=== PATIENT | male | born 1990 | race African-American/Black ===

== ENCOUNTER 2016-08-17 17:02 | Emergency (ER) | payer OTHER ==
[~2016-08-17] VITALS: Ht 185.4 cm; Wt 76.4 kg
[~2016-08-17 17:02] MED LIST: ALBUAER2 INH
[2016-08-17 17:14] VITALS: TEMP 36.9; Ht 185.4 cm; Wt 76.4 kg
[2016-08-17] MEDS ORDERED: VNTHFA/IN INH (18:18)
[2016-08-17 19:01] LABS: BASO % 0.6 %; BASO ABS # 0.05 K/uL (0-0.2); COMPLETE YES; EOS % 9.4 %; HEMATOCRIT 38.7 % (42-52); IG% 0.1 %; LYMPH % 18.1 %; MEAN CELL VOLUME 86.8 fL (80-100); MEAN CORPUSCULAR HEMOGLOBIN 31.2 pg (25-34); MEAN CORPUSCULAR HGB CONC 35.9 g/dl (32-36); MONO % 9.8 %; PLATELET COUNT 205 K/uL (130-400); RED BLOOD COUNT 4.46 M/uL (4.7-6.1); WHITE BLOOD COUNT 7.74 K/uL (4.8-10.8)
--- NOTE | 2016-08-17 19:18 | DIAGNOSTIC IMAGING REPORT ---
ABDOMEN AND PELVIS CT WITHOUT CONTRAST CT DOSE: 763.27 mGy.cm HISTORY: Flank pain lower abd pain TECHNIQUE: Multiaxial CT images of the abdomen and pelvis were performed without the use of intravenous and oral contrast according to the standard department stone protocol. COMPARISON STUDY: 08/01/2013 FINDINGS: The lung bases are clear. The unenhanced liver, gallbladder, spleen, pancreas, and adrenal glands are unremarkable. No renal calcifications or hydronephrosis. Several fluid-filled loops of small bowel as well as several mesenteric nodes. Appearance consistent with that of a nonspecific enteritis. No evidence for abscess collection or obstructive change. Mild mesenteric adenitis. IMPRESSION: 1. No evidence for obstructive urinary tract change. 2. Findings consistent with a mild enteritis combine with mild mesenteric adenitis.. 3. Study is otherwise negative Electronically signed by: Rigoberto Rey M.D. 08/17/2016 7:17 PM
[2016-08-17 19:25] LABS: URINE APPEARANCE CLEAR (CLEAR); URINE BILIRUBIN NEG (NEG); URINE COLOR YELLOW; URINE NITRITE NEG (NEG); URINE PH 6.5 (4.5-7.5); URINE SPECIFIC GRAVITY 1.015 (1.000-1.030); UROBILINOGEN NEG (NEG)
[2016-08-17 19:25] LABS: BUN/CREATININE RATIO 14.4 (10-20); CALCIUM 8.5 mg/dl (8.5-10.1); CREATININE 1.1 mg/dl (0.60-1.40); POTASSIUM 3.8 mmol/L (3.5-5.1)
[2016-08-17 19:29] LABS: MANUAL MICROSCOPIC REQUIRED? NO; REVIEW REQ? NO
[2016-08-17 19:40] VITALS: BP 118/74; PULSE 64; O2SAT 99
--- NOTE | 2016-08-17 23:13 | EMERGENCY ROOM VISIT NOTE ---
History Report prepared by Soledad: Anu Gamboa Under the Supervision of: Dr. Timoteo Astudillo M.D. First contact with patient: 17:56 Chief Complaint: ABDOMINAL PAIN Stated Complaint: PAINS IN LOWER BODY Nursing Triage Summary: patient c/o pain (pressure, heaviness) in lower abdomen, pelvic and groin area and scrotum. S/S x June. Seen here previously, did not follow up. Not getting better, some days no pain, other days it "flares up, the pressure the pain and it hurts to bend down and get back up." Denies urinary and bowel symptoms, denies n/v/d History of Present Illness The patient is a 26 year old male who presents to the Emergency Room with complaints of intermittent lower abdominal pain beginning 2 months ago. The patient states that his pain feels like pressure in his pelvic area, pain in his groin, and heaviness in his scrotum. He notes that he was seen here 2 months ago when his pain stared but did not follow up with his PCP. He reports that his pain has not gotten better since his last visit with intermittent flare ups. The patient reports that he does not know what triggers the flare ups and they last for various increments of time. The patient notes associated back pain. He denies any testicular swelling, fever, vomiting, diarrhea, black or bloody stools, and family history of Crohn's disease, ulcerative colitis or irritable bowel. Source of History: patient Onset: 2 months ago Position: abdomen Quality: pressure, other (heaviness) Timing: intermittent Associated Symptoms: + back pain, No diarrhea, No fevers, No hematochezia, No melena, No vomiting Note: He denies any testicular swelling, black or bloody stools, and family history of Crohn's disease, ulcerative colitis or irritable bowel. Review of Systems See HPI for pertinent positives & negatives. A total of 10 systems reviewed and were otherwise negative. Past Medical & Surgical Medical Problems: (1) Achilles rupture, right (2) Asthma (3) Chest pain Family History Diabetes mellitus Heart disease Hypertension Social History Smoking Status: Never Smoker Alcohol Use: occasionally Marital Status: in relationship Housing Status: lives with roommate Occupation Status: employed Current/Historical Medications Scheduled PRN Albuterol Hfa (Ventolin Hfa), 2 PUFFS INH Q4H PRN for Wheezing Allergies Coded Allergies: No Known Allergies (Unverified , 08/17/16) Physical Exam Vital Signs Date Time Temp Pulse Resp B/P Pulse Ox O2 Delivery O2 Flow Rate FiO2 08/17/16 19:40 64 16 118/74 99 08/17/16 17:14 36.9 79 17 117/69 97 Room Air Physical Exam Constitutional: Vital signs reviewed. Eyes: Pupils are equal round reactive to light. Conjunctiva are noninjected. ENT: Pharynx is clear without erythema or exudate. Mucous membranes are moist. Neck supple without meningeal signs. Respiratory: Clear to auscultation bilaterally. Breath sounds are equal bilaterally. Cardiovascular: Regular rate and rhythm. No rubs or gallops. GI: Soft, nondistended and nontender. Bowel sounds are present. Musculoskeletal: No peripheral edema. No CVA tenderness. Integumentary: No cyanosis. Neurological: The patient is awake and alert. No focal deficits. Psychiatric: Normal affect. Medical Decision & Procedures ER Provider Diagnostic Interpretation: CT results as stated below per my review and radiologist interpretation. ABDOMEN AND PELVIS CT WITHOUT CONTRAST COMPARISON STUDY: 08/01/2013 FINDINGS: The lung bases are clear. The unenhanced liver, gallbladder, spleen, pancreas, and adrenal glands are unremarkable. No renal calcifications or hydronephrosis. Several fluid-filled loops of small bowel as well as several mesenteric nodes. Appearance consistent with that of a nonspecific enteritis. No evidence for abscess collection or obstructive change. Mild mesenteric adenitis. IMPRESSION: 1. No evidence for obstructive urinary tract change. 2. Findings consistent with a mild enteritis combine with mild mesenteric adenitis.. 3. Study is otherwise negative Electronically signed by: Rigoberto Rey M.D. 08/17/2016 7:17 PM Laboratory Results 08/17/16 18:17 Red Blood Count 4.46, Mean Corpuscular Volume 86.8, Mean Corpuscular Hemoglobin 31.2, Mean Corpuscular Hemoglobin Concent 35.9, Mean Platelet Volume 11.0, Neutrophils (%) (Auto) 62.0, Lymphocytes (%) (Auto) 18.1, Monocytes (%) (Auto) 9.8, Eosinophils (%) (Auto) 9.4, Basophils (%) (Auto) 0.6, Neutrophils # (Auto) 4.79, Lymphocytes # (Auto) 1.40, Monocytes # (Auto) 0.76, Eosinophils # (Auto) 0.73, Basophils # (Auto) 0.05 08/17/16 18:17 Test 08/17/16 18:17 08/17/16 18:20 White Blood Count 7.74 K/uL (4.8-10.8) Red Blood Count 4.46 M/uL (4.7-6.1) Hemoglobin 13.9 g/dL (14.0-18.0) Hematocrit 38.7 % (42-52) Mean Corpuscular Volume 86.8 fL (80-100) Mean Corpuscular Hemoglobin 31.2 pg (25-34) Mean Corpuscular Hemoglobin Concent 35.9 g/dl (32-36) Platelet Count 205 K/uL (130-400) Mean Platelet Volume 11.0 fL (7.4-10.4) Neutrophils (%) (Auto) 62.0 % Lymphocytes (%) (Auto) 18.1 % Monocytes (%) (Auto) 9.8 % Eosinophils (%) (Auto) 9.4 % Basophils (%) (Auto) 0.6 % Neutrophils # (Auto) 4.79 K/uL (1.4-6.5) Lymphocytes # (Auto) 1.40 K/uL (1.2-3.4) Monocytes # (Auto) 0.76 K/uL (0.11-0.59) Eosinophils # (Auto) 0.73 K/uL (0-0.5) Basophils # (Auto) 0.05 K/uL (0-0.2) RDW Standard Deviation 38.9 fL (36.4-46.3) RDW Coefficient of Variation 12.2 % (11.5-14.5) Immature Granulocyte % (Auto) 0.1 % Immature Granulocyte # (Auto) 0.01 K/uL (0.00-0.02) Anion Gap 10.0 mmol/L (3-11) Est Creatinine Clear Calc Drug Dose 110.9 ml/min Estimated GFR () 107.6 Estimated GFR (Non- 92.8 BUN/Creatinine Ratio 14.4 (10-20) Calcium Level 8.5 mg/dl (8.5-10.1) Total Bilirubin 1.1 mg/dl (0.2-1) Direct Bilirubin 0.2 mg/dl (0-0.2) Aspartate Amino Transf (AST/SGOT) 32 U/L (15-37) Alanine Aminotransferase (ALT/SGPT) 30 U/L (12-78) Alkaline Phosphatase 62 U/L (45-117) Total Protein 7.0 gm/dl (6.4-8.2) Albumin 3.8 gm/dl (3.4-5.0) Lipase 173 U/L (73-393) Urine Color YELLOW Urine Appearance CLEAR (CLEAR) Urine pH 6.5 (4.5-7.5) Urine Specific [place] 1.015 (1.000-1.030) Urine Protein NEG (NEG) Urine Glucose (UA) NEG (NEG) Urine Ketones NEG (NEG) Urine Occult Blood NEG (NEG) Urine Nitrite NEG (NEG) Urine Bilirubin NEG (NEG) Urine Urobilinogen NEG (NEG) Urine Leukocyte Esterase NEG (NEG) Laboratory results as reviewed by me. ED Course 1814: The patient was evaluated in room A12B. A complete history and physical exam was performed. 1933: I reevaluated the patient and discussed his test results. 1941: Upon reevaluation, the patient appeared to have improvement of his symptoms. I discussed mike's findings with the patient. He verbalized agreement of the treatment plan. The patient was discharged home. Medical Decision This is a 26-year-old male who presents with lower abdominal pain. Differential diagnosis includes irritable bowel syndrome, inflammatory bowel disease, UTI, pancreatitis, enteritis. I did perform a limited focused review of portions of the patient's old chart on the electronic medical record. The patient was seen here in June of last year for lower abdominal pain and scrotal heaviness. He had an evaluation here including testicular US that showed hydroceles and unremarkable blood work. Chlamydia and gonorrhea tests were negative. I did evaluate the patient as noted above. IV access was established. I did order and personally review the patient's urinalysis as described above. I did order and review the patient's blood work as noted in the electronic medical record. His white blood cell count is not elevated. I did order a CT of the abdomen and pelvis. I did review the images myself as well as the radiology report as described above.This shows evidence of enteritis and mesenteric lymphadenopathy. I did discuss the test results with the patient. He is currently not having any pain. While mesenteric adenitis was a consideration, the patient has had pain since June which seems rather prolonged for mesenteric adenitis. Therefore I recommended to the patient that he follow up with gastroenterology for further evaluation of his symptoms as well as [facility]. He was discharged in good condition. Impression Primary Impression: Lower abdominal pain Additional Impression: Mesenteric lymphadenopathy Scribe Attestation The scribe's documentation has been prepared under my direct and personally reviewed by me in its entirety. I confirm that the note above accurately reflects all work, treatment, procedures, and medical decision making performed by me. Departure Information Dispostion Home / Self-Care Referrals No Doctor, Assigned (PCP) Forms HOME CARE DOCUMENTATION FORM, IMPORTANT VISIT INFORMATION, My [facility] Patient Instructions A Signature Page, ED Adenitis Mesenteric Additional Instructions You have been examined and treated today on an emergency basis only. This is not a substitute for, or an effort to provide, complete comprehensive medical care. It is impossible to recognize and treat all injuries or illnesses in a single emergency department visit. It is therefore important that you follow up closely with [facility] services and Dr. Bull of gastroenterology. Call as soon as possible for an appointment. Return for worsening symptoms or if you develop fever, vomiting, or any other concerning symptoms.
== END 2016-08-17 20:06 | disposition home or self-care (01) ==
LOC: C.EDB 17:03 → C.EDA 20:06
DX: R10.30 Lower abdominal pain, unspecified (principal); I88.0 Nonspecific mesenteric lymphadenitis; J45.909 Unspecified asthma, uncomplicated; Z83.3 Family history of diabetes mellitus; Z82.49 Family history of ischemic heart disease and other diseases of the circulatory system

== ENCOUNTER 2016-09-23 19:13 | Emergency (ER) | payer OTHER ==
[~2016-09-23] VITALS: Ht 185.4 cm; Wt 75.7 kg
[~2016-09-23 19:13] MED LIST changes: -ALBUAER2 INH; +VNTHFA/IN INH
[2016-09-23 19:16] VITALS: TEMP 36.9; Ht 185.4 cm; Wt 75.7 kg
[2016-09-23] MEDS ORDERED: ONDANSETRON INJ 2 MG/ML 2 ML VIAL IV STA (19:37)
[2016-09-23] MEDS ORDERED: SODIUM CHLORIDE 0.9% 1000ML 1,000 ML IV STA (19:37)
[2016-09-23 19:57] LABS: BASO % 0.7 %; BASO ABS # 0.05 K/uL (0-0.2); COMPLETE YES; EOS % 6.5 %; HEMATOCRIT 43.6 % (42-52); IG% 0.1 %; LYMPH % 28.1 %; LYMPH ABS # 2.02 K/uL (1.2-3.4); MEAN CELL VOLUME 87.9 fL (80-100); MEAN CORPUSCULAR HEMOGLOBIN 31.5 pg (25-34); MEAN CORPUSCULAR HGB CONC 35.8 g/dl (32-36); MEAN PLATELET VOLUME 11.3 fL (7.4-10.4); MONO % 7.2 %; NEUT % 57.4 %; PLATELET COUNT 222 K/uL (130-400); RED BLOOD COUNT 4.96 M/uL (4.7-6.1); WHITE BLOOD COUNT 7.19 K/uL (4.8-10.8)
[2016-09-23 20:20] LABS: CALCIUM 9.1 mg/dl (8.5-10.1); CREATININE 1.1 mg/dl (0.60-1.40); POTASSIUM 3.9 mmol/L (3.5-5.1)
--- NOTE | 2016-09-23 20:28 | DIAGNOSTIC IMAGING REPORT ---
PA CHEST RADIOGRAPH AND UPRIGHT AND SUPINE AP RADIOGRAPHS OF THE ABDOMEN CLINICAL HISTORY: Vomiting. Evaluate for obstruction. COMPARISON STUDY: Chest radiograph December 22, [address] of the abdomen and pelvis August 17, 2016. FINDINGS: Lung volumes are normal. Lungs are clear. There is no pneumothorax or pleural effusion. Cardiac size is normal. Mediastinal contours are normal. There is no free air. The bowel gas pattern is normal. IMPRESSION: 1. No free air or evidence of bowel obstruction. 2. No acute cardiopulmonary findings. Electronically signed by: Joe Mulligan M.D. 09/23/2016 8:27 PM Dictated Date/Time: 09/23/2016 8:26 PM
[2016-09-23 20:56] LABS: URINE APPEARANCE CLEAR (CLEAR); URINE BILIRUBIN NEG (NEG); URINE COLOR YELLOW; URINE NITRITE NEG (NEG); URINE SPECIFIC GRAVITY 1.021 (1.000-1.030); UROBILINOGEN NEG (NEG)
[2016-09-23 20:57] LABS: MANUAL MICROSCOPIC REQUIRED? NO; REVIEW REQ? NO
[2016-09-23] MEDS ORDERED: ONDANSETRON HOME PACK 4MG OD TAB PO ONE (21:00)
[2016-09-23] MEDS ORDERED: ONDA4TAB10 SL (21:02)
[2016-09-23 21:35] VITALS: BP 120/70; PULSE 76; O2SAT 100
--- NOTE | 2016-09-23 23:04 | EMERGENCY ROOM VISIT NOTE ---
History Report prepared by Scribe: Amelia Koenig Under the Supervision of: Dr. Timoteo Astudillo M.D. First contact with patient: 19:29 Chief Complaint: VOMITING Stated Complaint: THROWING UP History of Present Illness The patient is a 26 year old male who presents to the Emergency Room with complaints of persistent nausea and vomiting for the past 2 days. He reports yesterday he developed upper abdominal pain with constant vomiting every "20 minutes". Today, the vomiting improved, and he has been vomiting every 3 hours. He denies any recent fevers. He reports he has been constipated and has not had a bowel movement in 2 days. He reports that his abdominal pain is now resolved. Source of History: patient Onset: 2 days [employer] Position: abdomen Timing: other (persistent) Associated Symptoms: + abdominal pain, No fevers Review of Systems See HPI for pertinent positives & negatives. A total of 10 systems reviewed and were otherwise negative. Past Medical & Surgical Medical Problems: (1) Achilles rupture, right (2) Asthma (3) Chest pain Family History Diabetes mellitus Heart disease Hypertension Social History Smoking Status: Never Smoker Alcohol Use: occasionally Marital Status: in relationship Housing Status: lives with roommate Occupation Status: employed Current/Historical Medications Scheduled Ondasetron Odt (Zofran Odt), 4 MG SL Q6H Scheduled PRN Albuterol Hfa (Ventolin Hfa), 2 PUFFS INH Q4H PRN for Wheezing Allergies Coded Allergies: No Known Allergies (Unverified , 09/23/16) Physical Exam Vital Signs Date Time Temp Pulse Resp B/P Pulse Ox O2 Delivery O2 Flow Rate FiO2 09/23/16 21:35 76 18 120/70 100 09/23/16 20:47 78 16 125/78 100 Room Air 09/23/16 20:12 56 09/23/16 19:16 36.9 62 18 126/71 99 Room Air Physical Exam Constitutional: Vital signs reviewed. Eyes: Pupils are equal round reactive to light. Conjunctiva are noninjected. ENT: Pharynx is clear without erythema or exudate. Mucous membranes are slightly dry. Neck supple without meningeal signs. Respiratory: Clear to auscultation bilaterally. Breath sounds are equal bilaterally. Cardiovascular: Regular rate and rhythm. No rubs or gallops. GI: Soft, nondistended and nontender. Bowel sounds are present. Musculoskeletal: No peripheral edema. No CVA tenderness. Integumentary: No cyanosis. Neurological: The patient is awake and alert. No focal deficits. Psychiatric: Normal affect. Medical Decision & Procedures ER Provider Diagnostic Interpretation: This X-Ray was reviewed and interpreted by myself and the radiologist. PA CHEST RADIOGRAPH AND UPRIGHT AND SUPINE AP RADIOGRAPHS OF THE ABDOMEN CLINICAL HISTORY: Vomiting. Evaluate for obstruction. COMPARISON STUDY: Chest radiograph December 22, [address] of the abdomen and pelvis August 17, 2016. FINDINGS: Lung volumes are normal. Lungs are clear. There is no pneumothorax or pleural effusion. Cardiac size is normal. Mediastinal contours are normal. There is no free air. The bowel gas pattern is normal. IMPRESSION: 1. No free air or evidence of bowel obstruction. 2. No acute cardiopulmonary findings. Electronically signed by: Joe Mulligan M.D. 09/23/2016 8:27 PM Laboratory Results 09/23/16 19:45 Red Blood Count 4.96, Mean Corpuscular Volume 87.9, Mean Corpuscular Hemoglobin 31.5, Mean Corpuscular Hemoglobin Concent 35.8, Mean Platelet Volume 11.3, Neutrophils (%) (Auto) 57.4, Lymphocytes (%) (Auto) 28.1, Monocytes (%) (Auto) 7.2, Eosinophils (%) (Auto) 6.5, Basophils (%) (Auto) 0.7, Neutrophils # (Auto) 4.12, Lymphocytes # (Auto) 2.02, Monocytes # (Auto) 0.52, Eosinophils # (Auto) 0.47, Basophils # (Auto) 0.05 09/23/16 19:45 Test 09/23/16 19:45 09/23/16 20:00 White Blood Count 7.19 K/uL (4.8-10.8) Red Blood Count 4.96 M/uL (4.7-6.1) Hemoglobin 15.6 g/dL (14.0-18.0) Hematocrit 43.6 % (42-52) Mean Corpuscular Volume 87.9 fL (80-100) Mean Corpuscular Hemoglobin 31.5 pg (25-34) Mean Corpuscular Hemoglobin Concent 35.8 g/dl (32-36) Platelet Count 222 K/uL (130-400) Mean Platelet Volume 11.3 fL (7.4-10.4) Neutrophils (%) (Auto) 57.4 % Lymphocytes (%) (Auto) 28.1 % Monocytes (%) (Auto) 7.2 % Eosinophils (%) (Auto) 6.5 % Basophils (%) (Auto) 0.7 % Neutrophils # (Auto) 4.12 K/uL (1.4-6.5) Lymphocytes # (Auto) 2.02 K/uL (1.2-3.4) Monocytes # (Auto) 0.52 K/uL (0.11-0.59) Eosinophils # (Auto) 0.47 K/uL (0-0.5) Basophils # (Auto) 0.05 K/uL (0-0.2) RDW Standard Deviation 40.4 fL (36.4-46.3) RDW Coefficient of Variation 12.6 % (11.5-14.5) Immature Granulocyte % (Auto) 0.1 % Immature Granulocyte # (Auto) 0.01 K/uL (0.00-0.02) Anion Gap 7.0 mmol/L (3-11) Est Creatinine Clear Calc Drug Dose 109.9 ml/min Estimated GFR () 107.6 Estimated GFR (Non- 92.8 BUN/Creatinine Ratio 13.0 (10-20) Calcium Level 9.1 mg/dl (8.5-10.1) Total Bilirubin 2.0 mg/dl (0.2-1) Direct Bilirubin 0.4 mg/dl (0-0.2) Aspartate Amino Transf (AST/SGOT) 20 U/L (15-37) Alanine Aminotransferase (ALT/SGPT) 30 U/L (12-78) Alkaline Phosphatase 67 U/L (45-117) Total Protein 7.8 gm/dl (6.4-8.2) Albumin 4.2 gm/dl (3.4-5.0) Lipase 148 U/L (73-393) Urine Color YELLOW Urine Appearance CLEAR (CLEAR) Urine pH 6.0 (4.5-7.5) Urine Specific [place] 1.021 (1.000-1.030) Urine Protein NEG (NEG) Urine Glucose (UA) NEG (NEG) Urine Ketones NEG (NEG) Urine Occult Blood NEG (NEG) Urine Nitrite NEG (NEG) Urine Bilirubin NEG (NEG) Urine Urobilinogen NEG (NEG) Urine Leukocyte Esterase NEG (NEG) Laboratory results as reviewed by me. Medications Administered Medications (Trade) Dose Ordered Sig/Michaela Route Start Time Stop Time Status Last Admin Dose Admin Ondansetron HCl 4 mg 4 mg NOW STAT IV 09/23/16 19:37 09/23/16 19:39 DC 09/23/16 20:06 4 MG Sodium Chloride (Nss 1000ml) 1,000 ml @ 999 mls/hr Q1H1M STAT IV 09/23/16 19:37 09/23/16 20:37 DC 09/23/16 19:54 999 MLS/HR Ondansetron HCl (ZOFRAN ODT 4MG Home Pack) 1 [facility] UD ONCE PO 09/23/16 21:00 09/23/16 21:01 DC 09/23/16 21:00 1 [facility] ED Course 1930: The patient was evaluated in room A4. A complete history and physical exam was performed. 1936: NSS 1000 ml @ 999 mls/hr IV, Zofran 4 mg IV. 2044: I reevaluated the patient. He is drinking Gatorade and feeling well. I discussed his test results including his chronically elevated bilirubin. I also discussed his discharge instructions and he verbalized complete understanding and agreement. 2100: Zofran 4 mg 1 home pack PO. Medical Decision This is a 26-year-old male presents with vomiting and abdominal pain. Differential diagnosis includes gastritis, peptic ulcer disease, GERD, bowel obstruction, pancreatitis, irritable bowel syndrome. I did perform a limited focused review of portions of the patient's old chart on the electronic medical record. The patient was seen here in the ED by me on August 17, 2016 for pain in his lower abdomen. He had a CT scan which showed mild enteritis and mild mesenteric adenitis. I did evaluate the patient as noted above. The patient is presenting with upper abdominal pain that has since resolved. He does continue to have vomiting since yesterday. His examination is unremarkable other than some dry mucous membranes. He has no abdominal tenderness. IV access was established. He was treated with Zofran IV and normal saline IV. I did order and personally review the patient's abdominal and chest x-ray as described above. There is no evidence of obstruction or free air. He does state he has been constipated and I did recommend enemas at home. I did order and review the patient's blood work as noted in the electronic medical record. Blood work is unremarkable other than a mild elevation of his bilirubin which is chronic. I did reassess the patient. He is drinking Gatorade without difficulty and feels much better. His urinalysis is unremarkable. He was informed of his test results and discharged with a prescription for Zofran. He was advised to find a primary care physician for follow up. Impression Primary Impression: Vomiting Additional Impression: Upper abdominal pain Scribe Attestation The scribe's documentation has been prepared under my direct and personally reviewed by me in its entirety. I confirm that the note above accurately reflects all work, treatment, procedures, and medical decision making performed by me. Departure Information Dispostion Home / Self-Care Prescriptions Ondasetron Odt (ZOFRAN ODT) 4 Mg Tab 4 MG SL Q6H for Nausea, #10 TAB Prov: Timoteo Astudillo M.D. 09/23/16 Referrals No Doctor, Assigned (PCP) Patient Instructions ED Abd Pain Cause Unkn Male Ch, My [facility], Vomiting - [facility] Additional Instructions You have been examined and treated today on an emergency basis only. This is not a substitute for, or an effort to provide, complete comprehensive medical care. It is impossible to recognize and treat all injuries or illnesses in a single emergency department visit. It is therefore important that you follow up closely with a regular physician. Call as soon as possible for an appointment. Return for worsening symptoms or if you develop fever, black or tarry stools, pain in the right lower abdomen or any other concerning symptoms. Problem Qualifiers Primary Impression: Vomiting Vomiting type: unspecified Vomiting Intractability: non-intractable Nausea presence: with nausea Qualified Codes: R11.2 - Nausea with vomiting, unspecified
== END 2016-09-23 21:36 | disposition home or self-care (01) ==
LOC: C.EDB 19:14 → C.EDA 21:36
DX: R11.10 Vomiting, unspecified (principal); R10.10 Upper abdominal pain, unspecified; J45.909 Unspecified asthma, uncomplicated; Z83.3 Family history of diabetes mellitus; Z82.49 Family history of ischemic heart disease and other diseases of the circulatory system

== ENCOUNTER 2016-10-15 17:13 | Emergency (ER) | payer OTHER ==
[~2016-10-15] VITALS: Ht 185.4 cm; Wt 77.6 kg
[~2016-10-15 17:13] MED LIST changes: +ONDA4TAB10 SL
[2016-10-15 17:16] VITALS: BP 122/71; PULSE 90; TEMP 36.4; O2SAT 97; Ht 185.4 cm; Wt 77.6 kg
--- NOTE | 2016-10-15 17:51 | EMERGENCY ROOM VISIT NOTE ---
History First contact with patient: 17:22 Chief Complaint: STD MALE Stated Complaint: [facility] [facility] [facility] Nursing Triage Summary: Patient states he would like checked for STD's Denies any symptoms History of Present Illness The patient is a 26 year old male who presents to the Emergency Room stating he would like to be checked for all STDs. The patient has a history of chlamydia 6 months ago. Since that time he has had 3 partners which he made them show him records that they did not have any STDs. The patient does not have any symptoms of STDs such as abdominal pain, urethral discharge, lesions in the genital area. The patient states that he just notices some spots on his upper lip this morning and got very concerned. He states they are not painful or itchy. The patient denies any fever or chills malaise, rashes Review of Systems 10 system review was performed and was negative unless stated otherwise history of present illness. Past Medical/Surgical History Medical Problems: (1) Achilles rupture, right (2) Asthma (3) Chest pain Chlamydia Family History Diabetes mellitus Heart disease Hypertension Social History Smoking Status: Never Smoker Alcohol Use: occasionally Marital Status: in relationship Housing Status: lives with roommate Occupation Status: employed Current/Historical Medications Scheduled PRN Albuterol Hfa (Ventolin Hfa), 2 PUFFS INH Q4H PRN for Wheezing Allergies Coded Allergies: No Known Allergies (Unverified , 09/23/16) Physical Exam Vital Signs Date Time Temp Pulse Resp B/P Pulse Ox O2 Delivery O2 Flow Rate FiO2 10/15/16 17:16 36.4 90 20 122/71 97 Room Air Physical Exam GENERAL: 26-year-old male appears in no acute distress. MENTAL Status: Alert and oriented 3. LIPS: There is some dryness noted to the both the upper and the lower lips along the vermilion border. No lesions, ulcerations, vesicles are noted. MOUTH: No lesions noted of the mucosa. NECK: Supple, no lymphadenopathy noted. No carotid bruits noted. LUNGS: Clear auscultation without wheezes rales or rhonchi. CARDIAC: Regular rate and rhythm without murmur. Pulses is full and equal throughout. ABDOMEN: Positive bowel sounds all 4 quadrants. Soft, nontender to palpation without organomegaly or masses. GENITALIA: Testicles without masses. No tenderness noted. No rashes or lesions noted of the penis. No penile discharge noted. Medical Decision & Procedures ED Course The patient was evaluated. I discussed the case with Dr. Carranza who is in agreement with treatment plan. Since the patient does not have any symptoms, it is recommended that he goes to the [facility] to get laboratory testing for all STDs except for the GC and chlamydia which we will do here in the emergency room. A penile swab was performed for GC and Chlamydia and results are pending. The patient was discharged home in stable condition. Medical Decision Since the patient was not having any symptoms it was recommended that the patient goes to the [facility] for the remainder of the STD testing. Impression Primary Impression: Risky sexual behavior Departure Information Dispostion Home / Self-Care Condition GOOD Referrals No Doctor, Assigned (PCP) Forms HOME CARE DOCUMENTATION FORM, IMPORTANT VISIT INFORMATION, WORK / SCHOOL INSTRUCTIONS Patient Instructions My [facility] Additional Instructions We will call you with the results of your testing that you had performed today. Recommend that you go to the [facility] for the remainder of the STD testing that you are requesting.
[2016-10-19 00:50] LABS: CHLAMYDIA TRACH RNA*** NOT DETECTED (NOT DETECTED); GC (NEIS GONORRHOEAE)RNA** NOT DETECTED (NOT DETECTED)
== END 2016-10-15 17:54 | disposition home or self-care (01) ==
LOC: C.EDB 17:15 → C.EDD 17:54
DX: Z72.51 High risk heterosexual behavior (principal); J45.909 Unspecified asthma, uncomplicated

== ENCOUNTER 2018-12-25 21:37 | Inpatient (IN) ==
[2018-12-25] MEDS ORDERED: SODIUM CHLORIDE 0.9% 1000ML 1,000 ML IV ONE (21:53)
[2018-12-25] MEDS ORDERED: MoRPHine SULFATE 4 MG/ML 1 ML CARP\\VIAL IV STA (21:56)
[2018-12-25] MEDS ORDERED: ONDANSETRON INJ 2 MG/ML 2 ML VIAL IV STA (21:56)
[2018-12-25 22:21] LABS: Basophils # (auto) 0.02 K/uL (0-0.2); Basophils % (auto) 0.2 %; Eosinophils # (auto) 0.06 K/uL (0-0.5); Eosinophils % (auto) 0.5 %; Hematocrit (blood only) 26.6 % (42-52); Hemoglobin 9.8 g/dL (14.0-18.0); Immature Granulocytes # (auto) 0.05 K/uL (0.00-0.02); Immature Granulocytes % (auto) 0.4 %; Lymphocytes # (auto) 1.83 K/uL (1.2-3.4); Lymphocytes % (auto) 13.9 %; Mean Corpuscular Hgb Conc 36.8 g/dL (32-36); Mean Platelet Volume 10.7 fL (7.4-10.4); Monocytes # (auto) 0.68 K/uL (0.11-0.59); Monocytes % (auto) 5.2 %; Neutrophils # (auto) 10.55 K/uL (1.4-6.5); Neutrophils % (auto) 79.8 %; Platelet Count 218 K/uL (130-400); RDW Coefficient of Variation 12.7 % (11.5-14.5); Red Blood Count 3.13 M/uL (4.7-6.1); Reticulocyte % 1.9 % (0.5-2.0); Reticulocytes # 0.06 10^6/uL (0.02-0.10); White Blood Count 13.19 K/uL (4.8-10.8)
--- NOTE | 2018-12-25 22:34 | XRay Report ---
XR abdomen 2V w PA chest CLINICAL HISTORY: cp/epgiastric pain COMPARISON STUDY: No previous studies for comparison. FINDINGS: The soft tissues, psoas shadows, renal outlines and intestinal gas pattern appear normal. T here is no evidence for bowel obstruction. There is no evidence for free intraperitoneal air. No abno rmal abdominal calcifications are seen. A frontal view of the chest was performed and is unremarkable . IMPRESSION: Normal study. The above report was generated using voice recognition software. It may contain grammatical, syntax or spelling errors. Electronically signed by: Rigoberto Rey M.D. 12/25/2018 10:32 PM
[2018-12-25 22:41] LABS: Alanine Aminotransferase 29 U/L (12-78); Albumin Level 3.3 gm/dl (3.4-5.0); Aspartate Aminotransferase 22 U/L (15-37); BUN Creatinine Ratio 35.5 (10-20); Blood Urea Nitrogen 37 mg/dl (7-18); Calcium 8.4 mg/dl (8.5-10.1); Carbon Dioxide 27 mmol/L (21-32); Chloride 108 mmol/L (98-107); Creatinine Clr Calc Pharmacy 118.2 ml/min; Est GFR (African American) 114.8; Est GFR (Non-African American) 99.1; Glucose 73 mg/dl (70-99); Potassium 4.4 mmol/L (3.5-5.1); Sodium 140 mmol/L (136-145)
[2018-12-25 22:41] LABS: Appearance Urine Clear (Clear); Bilirubin Urine Negative (Negative); Blood Urine Negative (Negative); Color Urine Yellow; Glucose Urine UA Negative (Negative); Ketones Urine Negative (Negative); Leukocyte Esterase Urine Negative (Negative); Nitrite Urine Negative (Negative); Protein Urine Negative (Negative); Specific Gravity Urine 1.025 (1.000-1.030); Urobilinogen Urine Negative (Negative); pH Urine 5.5 (4.5-7.5)
[2018-12-25 22:46] LABS: Alkaline Phosphatase 48 U/L (45-117); Bilirubin Direct 0.2 mg/dl (0-0.2); Bilirubin,Total 0.9 mg/dl (0.2-1); Troponin I < 0.015 ng/ml (0-0.045)
[2018-12-25] MEDS ORDERED: OPTIRAY 320 125ml IV PRN (23:11)
[2018-12-26] MEDS ORDERED: PANTOprazole 80 MG in DEXTROSE 5% 100 ML IV STA (00:41)
--- NOTE | 2018-12-26 00:48 | History & Physical Report ---
Date of Service December 26, 2018 Assessment & Plan (1) GI bleed: Possible etiologies include: Ischemia associated with sickling, C. difficile colitis, food poisoning, peptic ulcer disease, others. NPO except ice chips NSS + KCl 20 mEq at [address] on Protonix drip. Serial H&H's every 6 hours. Order stool culture and stool for C. difficile. Zofran 4 mg IV every 6 hours as needed. Acetaminophen 1 g IV every 8 hours as needed Consult gastroenterology. Present on Admission?: Yes (2) Symptomatic anemia: Hemoglobin today is 9.8, with reference hemoglobin on 12/21 of 15.1. We will follow serial H&H's every 6 hours. Type and screen ordered. Present on Admission?: Yes (3) GERD (gastroesophageal reflux disease): See above. Present on Admission?: Yes (4) Abdominal pain: See above Present on Admission?: Yes (5) Reaction, drug, adverse: The patient has been taking Flagyl orally as potential treatment for a trichomonas infection of his significant other. His testing was negative, but he did complete the full course of treatment. He did have some nausea and abdominal discomfort, but his significant other notes that he was having some of the symptoms prior to the Flagyl as well. Unclear the input that this medication may have had to his overall bleeding process. Present on Admission?: Yes (6) Asthma: Continue to have Ventolin HFA 2 puffs every 6 hours as needed available Present on Admission?: Yes History of Present Illness Chief Complaint: The patient presents to the emergency department with complaint of 2 days of blood in stool characterized by dark clumps, with surrounding bright red blood. He has had 3 of these blood bowel movements today, including one in the emergency department. 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 He has not had any issues like this in the past. He denies any regular use of NSAIDs. He was recently on metronidazole for empiric treatment for possible trichomonas infection, that his significant other had, but his testing was negative. He was seen in the emergency department on 12/21/2018 due to chest discomfort and epigastric discomfort along with nausea, that at that time was thought attributable to some mild GERD. He began to have the bleeding as noted 2 days ago, with most significant bleeding in the beginning initially yesterday, and extending into 3 bowel movements today. He denies any questionable food intakes, or any sick exposures. There is no family history of GI bleeding. Allergies Allergy/AdvReac Type Severity Reaction Status Date / Time No Known Allergies Allergy Verified 12/25/18 22:23 Home Medications Home Medications Medication Instructions Recorded Confirmed Type albuterol sulfate [Ventolin HFA] 2 puff INHALATION Q6H PRN 12/21/18 12/25/18 History Past Med/Surg History Medical History Asthma (Chronic) Sickle cell disease (Chronic) Social History Preferred Language: Swiss Feels Safe at Home: Yes Smoking Status: Former smoker Review of Systems Review of Systems: The patient denies chest pain, palpitations, shortness of breath, dyspnea on exertion, cough, lower extremity swelling, sore throat, fevers, chills, sweats, vomiting, blood in urine, dysuria, urinary frequency or urgency, lightheadedness, dizziness, headache, memory loss, loss of consciousness, rash, imbalance, focal or generalized weakness, numbness or tingling in arms or legs, generalized arthralgias or myalgias, back or neck pain, or night sweats. The review of systems is otherwise negative other than for that already noted above, and at least 10 systems have been reviewed. Physical Exam Physical Exam: The patient is awake, alert and oriented 3, well developed and well nourished, normocephalic and atraumatic, lying in bed and in no acute distress. HEENT--PERRL, EOMI, mucous membranes and oropharynx dry. Neck--supple. No JVD. No bruits. Thyroid normal, trachea midline, no adenopathy. Heart--normal S1 and S2. No murmurs, rubs or gallops. Lungs--clear bilaterally, no respiratory distress, no accessory muscle use. Abdomen--normal bowel sounds and soft. Nontender. Nondistended, no hernias or masses, no organomegaly. Extremities--no cyanosis or clubbing. No edema. There are good distal pulses b/l. Dermatologic--normal skin turgor, normal color, no abnormal lymph nodes, no rash. Neurologic--cranial nerves II through XII grossly intact. Rheumatologic--normal range of motion. Psychiatric--normal affect. Results & Data Vital Signs (Past 12 Hours) Vital Signs Temp Pulse Pulse Resp BP BP Pulse Ox 12/26/18 00:31 111 H 18 131/65 99 12/25/18 23:12 106 H 18 121/72 100 12/25/18 21:40 97.7 F 125 H 20 114/69 99 Laboratory Results Laboratory Results WBC 13.19 K/uL (4.8-10.8) H 12/25/18 22:05 RBC 3.13 M/uL (4.7-6.1) L 12/25/18 22:05 Hgb 9.8 g/dL (14.0-18.0) L 12/25/18 22:05 Hct 26.6 % (42-52) L 12/25/18 22:05 MCV 85.0 fL (80-100) 12/25/18 22:05 MCH 31.3 pg (25-34) 12/25/18 22:05 MCHC 36.8 g/dL (32-36) H 12/25/18 22:05 RDW Std Deviation 39.0 fL (36.4-46.3) 12/25/18 22:05 RDW Coeff of Denise 12.7 % (11.5-14.5) 12/25/18 22:05 Plt Count 218 K/uL (130-400) 12/25/18 22:05 MPV 10.7 fL (7.4-10.4) H 12/25/18 22:05 Immature Gran % (Auto) 0.4 % 12/25/18 22:05 Neut % (Auto) 79.8 % 12/25/18 22:05 Lymph % (Auto) 13.9 % 12/25/18 22:05 Pettis % (Auto) 5.2 % 12/25/18 22:05 Eos % (Auto) 0.5 % 12/25/18 22:05 Baso % (Auto) 0.2 % 12/25/18 22:05 Reticulocyte % (Auto) 1.9 % (0.5-2.0) 12/25/18 22:05 Immature Gran # (Auto) 0.05 K/uL (0.00-0.02) H 12/25/18 22:05 Neut # (Auto) 10.55 K/uL (1.4-6.5) H 12/25/18 22:05 Lymph # (Auto) 1.83 K/uL (1.2-3.4) 12/25/18 22:05 Pettis # (Auto) 0.68 K/uL (0.11-0.59) H 12/25/18 22:05 Eos # (Auto) 0.06 K/uL (0-0.5) 12/25/18 22:05 Baso # (Auto) 0.02 K/uL (0-0.2) 12/25/18 22:05 Reticulocyte # 0.06 10^6/uL (0.02-0.10) 12/25/18 22:05 Sodium 140 mmol/L (136-145) 12/25/18 22:05 Potassium 4.4 mmol/L (3.5-5.1) 12/25/18 22:05 Chloride 108 mmol/L (98-107) H 12/25/18 22:05 Carbon Dioxide 27 mmol/L (21-32) 12/25/18 22:05 Anion Gap 5.0 (3-11) 12/25/18 22:05 BUN 37 mg/dl (7-18) H 12/25/18 22:05 Creatinine 1.03 mg/dl (0.6-1.4) 12/25/18 22:05 Est Cr Clr Drug Dosing 118.2 ml/min 12/25/18 22:05 Est GFR ( Amer) 114.8 12/25/18 22:05 Est GFR (Non-Af Amer) 99.1 12/25/18 22:05 BUN/Creatinine Ratio 35.5 (10-20) H 12/25/18 22:05 Glucose 73 mg/dl (70-99) 12/25/18 22:05 Calcium 8.4 mg/dl (8.5-10.1) L 12/25/18 22:05 Total Bilirubin 0.9 mg/dl (0.2-1) 12/25/18 22:05 Direct Bilirubin 0.2 mg/dl (0-0.2) 12/25/18 22:05 AST 22 U/L (15-37) 12/25/18 22:05 ALT 29 U/L (12-78) 12/25/18 22:05 Alkaline Phosphatase 48 U/L (45-117) 12/25/18 22:05 Troponin I < 0.015 ng/ml (0-0.045) 12/25/18 22:05 Total Protein 6.0 gm/dl (6.4-8.2) L 12/25/18 22:05 Albumin 3.3 gm/dl (3.4-5.0) L 12/25/18 22:05 Lipase 140 U/L (73-393) 12/25/18 22:05 Urine Color Yellow 12/25/18 22:27 Urine Appearance Clear (Clear) 12/25/18 22:27 Urine pH 5.5 (4.5-7.5) 12/25/18 22:27 Ur Specific [place] 1.025 (1.000-1.030) 12/25/18 22:27 Urine Protein Negative (Negative) 12/25/18 22:27 Urine Glucose (UA) Negative (Negative) 12/25/18 22:27 Urine Ketones Negative (Negative) 12/25/18 22:27 Urine Blood Negative (Negative) 12/25/18 22:27 Urine Nitrite Negative (Negative) 12/25/18 22:27 Urine Bilirubin Negative (Negative) 12/25/18 22:27 Urine Urobilinogen Negative (Negative) 12/25/18 22:27 Ur Leukocyte Esterase Negative (Negative) 12/25/18 22:27 Blood Type B Negative 12/25/18 21:53 Antibody Screen NEGATIVE 12/25/18 21:53 Diagnostic Findings [facility] [place] [phone] XRay Report Patient: FABI BUCKLEY EAdmit Date: 12/25/18 MR#: [id number]: 1949 [facility] Acct ID:[id number]: Date: [address] Zip: [place] [address] Age: 28Location: ED Sex: M Room/Bed: Att Phy: Diagnosis: BLOOD IN STOOL, A LOT [facility]: [facility] F[facility] Phy: Interpreting Phy: Rigoberto Rey MD Admit Phy: Ordering Phy: Tin Marie M.D. cc: ~ XR abdomen 2V w PA chest CLINICAL HISTORY: cp/epgiastric pain COMPARISON STUDY: No previous studies for comparison. FINDINGS: The soft tissues, psoas shadows, renal outlines and intestinal gas pattern appear normal. There is no evidence for bowel obstruction. There is no evidence for free intraperitoneal air. No abnormal abdominal calcifications are seen. A frontal view of the chest was performed and is unremarkable. IMPRESSION: Normal study. The above report was generated using voice recognition software. It may contain grammatical, syntax or spelling errors. Electronically signed by: Rigoberto Rey M.D. 12/25/2018 10:32 PM Dictated: 12/25/182231 Transcribed: 12/25/182231 [facility] Patient: FABI BUCKLEY (Male) Age: 28 MR #: [id number] Status: ER Date: 12/25/18 23:11 Slices: [id number] History: PAIN IN CHEST, SOB, R/O PE Priors: Tech: MagdasameJrryie @ [phone] Exams: CTA CHEST Contrast: IV Amt: 110 ML OPTIRAY 320 Accession Numbers: [id number] Preliminary Findings Only See Final Report For Complete Findings CTA CHEST: No pulmonary embolus. No effusion or consolidation. Radiologist: Aiyana Mendez M.D. Study ready at 23:15 and initial results transmitted at 23:28 *This report constitutes a preliminary interpretation only. Non-acute findings felt to be unrelated to the clinical presentation may not be discussed in this report. The study will be interpreted and a final report will be generated by the local Radiologist the following shift. To reach the hospital radiology department call [phone]. If a discrepancy is found between the preliminary and final interpretations of this study, please notify us via our Client Portal at [email or web address] under QA Exams. You can also fax this report with a description of the discrepancy, or include the final report, to our daytime fax number [phone]. If faxing, please indicate the severity of discrepancy using one of the following categories: [ ] 1 - Agree/Informational [ ] 2 - Unlikely to Affect Management [ ] 3 - Possible Eventual Change of Management [ ] 4 - Probable Immediate Change of Management For all other patient related information, please fax us at [phone]. Code Status & VTE Plan Code Status Full code VTE Prophylaxis Plan VTE Prophylaxis will be ordered: Yes (1) GI bleed GI bleed type/associated pathology: unspecified gastrointestinal hemorrhage type Qualified Code(s): K92.2 - Gastrointestinal hemorrhage, unspecified (2) Reaction, drug, adverse Encounter type: initial encounter Qualified Code(s): T50.905A - Adverse effect of unspecified drugs, medicaments and biological substances, initial encounter (3) GERD (gastroesophageal reflux disease) Esophagitis presence: esophagitis presence not specified Qualified Code(s): K21.9 - Gastro-esophageal reflux disease without esophagitis (4) Abdominal pain Abdominal location: epigastric Qualified Code(s): R10.13 - Epigastric pain
[2018-12-26] MEDS ORDERED: OPTIRAY 320 125ml IV PRN (01:17)
--- NOTE | 2018-12-26 01:30 | Emergency Department Note ---
Entered by Shayy Mejias acting as a scribe for Tin Marie History of Present Illness General Chief complaint: Rectal Bleed Stated complaint: BLOOD IN STOOL, A LOT Time Seen by Provider: 12/25/18 21:45 Source: patient History of Present Illness Onset (ago): day(s) 1 Location: abdomen Pain Consistency: + other (persistent ) Quality: + other (bloody stools) Associated symptoms: + chest pain (center and left-sided), + nausea/vomiting (positive nausea; negative vomiting), + shortness of breath and + other (positive diarrhea; negative blood in urine; negative abdominal pain; positive heart racing; positive feeling of going to collapse; positive black stools) The patient is a 28 year old male who presents to the Emergency Room with complaints of persistent bloody stools that began yesterday. The patient states that yesterday he had a solid bowel movement, and states that there was blood in it. He states that today he had two episodes of bloody and black diarrhea. The patient denies blood in his urine. He states that he felt as though he was going to collapse while in the shower, and states that his heart has been racing. The patient states that he has had persistent nausea, center and left-sided chest pain, and shortness of breath for the past several days. The patient denies vomiting and abdominal pain. He states that he has a history of sickle cell disease. Home Medications Home Medications Medication Instructions Recorded Confirmed Type albuterol sulfate [Ventolin HFA] 2 puff INHALATION Q6H PRN 12/21/18 12/25/18 History Allergies Allergy/AdvReac Type Severity Reaction Status Date / Time No Known Allergies Allergy Verified 12/25/18 22:23 Past Med/Surg History Medical History Asthma (Chronic) Sickle cell disease (Chronic) Social History Preferred Language: Telugu Feels Safe at Home: Yes Smoking Status: Former smoker Review of Systems See HPI for pertinent positives & negatives. and A total of 10 systems reviewed and were otherwise negative Physical Exam Vital Signs Vital Signs - 24 hr 12/25/18 21:40 12/25/18 23:12 12/26/18 00:31 Temperature 36.5 C Temperature Source Oral Sepsis Recent Fever Within 48 Hours No Sepsis New/Unexplained Change in Mental Status No Sepsis Action Taken by Nursing No Action Required Pulse Rate 125 H Pulse Rate [Right Finger] 106 H 111 H Pulse Rhythm Regular Pulse Strength Normal Respiratory Rate 20 18 18 Respiratory Effort / Characteristics Non-Labored Spontaneous Non-Labored Spontaneous Respiratory Depth Normal Normal Respiratory Pattern Regular Regular Blood Pressure 114/69 Blood Pressure [Left Arm] 121/72 131/65 Blood Pressure Mean 84 Blood Pressure Mean [Left Arm] 88 87 Blood Pressure Position Sitting Blood Pressure Position [Left Arm] Lying Pulse Oximetry 99 100 99 Oxygen Delivery Method Room Air Room Air GENERAL: He is oriented to person, place, and time. He appears well-developed and well-nourished. He does not appear distressed. Pale appearing. HENT: Exam performed. - Head: Normocephalic and atraumatic. - Right Ear: External ear normal. No mastoid tenderness. - Left Ear: External ear normal. No mastoid tenderness. - Mouth/Throat: The oropharynx is clear and moist. No trismus in the jaw. No dental abscesses or uvula swelling. No oropharyngeal exudate or tonsillar abscesses. EYES: Conjunctivae and EOM are normal. Pupils are equal, round, and reactive to light. Right eye exhibits no discharge. Left eye exhibits no discharge. No scleral icterus. NECK: Normal range of motion. Neck supple. No JVD present. No spinous process tenderness present. No carotid bruit present. No rigidity. No tracheal deviation and normal range of motion present. No Brudzinski's sign and no Kernig's sign noted. CV: Tachycardic rate, regular rhythm, normal heart sounds and intact distal pulses. There is no peripheral edema. Palpable radial pulses bue. PULM/CHEST: Effort normal and breath sounds normal. No respiratory distress. No stridor. He has no wheezes. He has no rales. - Chest Wall: He exhibits no tenderness. ABD: The abdomen is soft. Bowel sounds are normal. He has no distension. No mass is present. There is no tenderness. There is no rebound, no guarding, no Mur phy's sign and no tenderness at McBurney's point. Rovsig negative. RECTAL: Bright red blood per rectum. MUSC/SKEL: Normal range of motion. There is no peripheral edema, tenderness or deformity. LYMPH: No cervical adenopathy. NEURO: He is alert and oriented to person, place, and time. He has normal strength. No cranial nerve deficit or sensory deficit. Coordination and gait normal. GCS eye subscore is 4. GCS verbal subscore is 5. GCS motor subscore is 6. Cerebellar tests wnl. SKIN: Skin is warm and dry. He is not diaphoretic. PSYCH: He has a normal mood and affect. Behavior is normal. Judgment and thought content normal. Course 2148: The patient was evaluated in room B4B, and a complete history and physical examination were performed. EMR reviewed: The patient has a history of sickle cell. The patient was seen in the ED on 12/22/2018 for chest pain. 0010: The patient's vital signs are stable. CTA of the chest is within normal limits. Labs show an approximate 5 point drop in hemoglobin and BUN more than tripled to 37. The patient has active GI bleeding in the ED. The patient will be further evaluated by Dr. [facility] Hospitalist who requests that a CTA of the abdomen be ordered. Administered Medications Ioversol (Optiray 320 125ml) 125 ml IV ONCE PRN PRN Reason: Interaction Checking Stop: 12/29/18 23:10 Last Admin: 12/25/18 23:11 Dose: 110 ml Documented by: [id number] Ioversol (Optiray 320 125ml) 125 ml IV ONCE PRN PRN Reason: Interaction Checking Stop: 12/30/18 01:16 Last Admin: 12/26/18 01:18 Dose: 119 ml Documented by: [id number] Discontinued Medications Sodium Chloride (Nss 1000ml) 1,000 mls @ 999 mls/hr IV .Q1H1M ONE Stop: 12/25/18 22:53 Last Infusion: 12/25/18 23:43 Dose: 0 mls/hr Documented by: [id number] Admin: 12/25/18 22:19 Dose: 999 mls/hr Documented by: [id number] Pantoprazole Sodium 80 mg/ (Dextrose) 120 mls @ 480 mls/hr IV NOW STA Stop: 12/26/18 00:55 Last Admin: 12/26/18 01:16 Dose: 480 mls/hr Documented by: [id number] Morphine Sulfate (Morphine Sulfate) 4 mg IV NOW STA Stop: 12/25/18 21:57 Last Admin: 12/25/18 22:19 Dose: 4 mg Documented by: [id number] Ondansetron HCl (Zofran) 4 mg IV NOW STA Stop: 12/25/18 21:57 Last Admin: 12/25/18 22:20 Dose: 4 mg Documented by: [id number] Medical Decision Making Medical Records Attestation: I reviewed the patient's medical records. Home Medications Current Medication List: was personally reviewed by me Laboratory Data Attestation: I reviewed the patient's lab results. Result diagrams: 12/25/18 22:05 12/25/18 22:05 Lab Results 12/25/18 12/25/18 12/25/18 Range/Units 21:53 22:05 22:05 WBC 13.19 H (4.8-10.8) K/uL RBC 3.13 L (4.7-6.1) M/uL Hgb 9.8 L (14.0-18.0) g/dL Hct 26.6 L (42-52) % MCV 85.0 (80-100) fL MCH 31.3 (25-34) pg MCHC 36.8 H (32-36) g/dL RDW Std Deviation 39.0 (36.4-46.3) fL RDW Coeff of Denise 12.7 (11.5-14.5) % Plt Count 218 (130-400) K/uL MPV 10.7 H (7.4-10.4) fL Immature Gran % (Auto) 0.4 % Neut % (Auto) 79.8 % Lymph % (Auto) 13.9 % [place] % (Auto) 5.2 % Eos % (Auto) 0.5 % Baso % (Auto) 0.2 % Reticulocyte % (Auto) 1.9 (0.5-2.0) % Immature Gran # (Auto) 0.05 H (0.00-0.02) K/uL Neut # (Auto) 10.55 H (1.4-6.5) K/uL Lymph # (Auto) 1.83 (1.2-3.4) K/uL [place] # (Auto) 0.68 H (0.11-0.59) K/uL Eos # (Auto) 0.06 (0-0.5) K/uL Baso # (Auto) 0.02 (0-0.2) K/uL Reticulocyte # 0.06 (0.02-0.10) 10^6/uL Sodium 140 (136-145) mmol/L Potassium 4.4 (3.5-5.1) mmol/L Chloride 108 H (98-107) mmol/L Carbon Dioxide 27 (21-32) mmol/L Anion Gap 5.0 (3-11) BUN 37 H (7-18) mg/dl Creatinine 1.03 (0.6-1.4) mg/dl Est Cr Clr Drug Dosing 118.2 ml/min Est GFR ( Amer) 114.8 Est GFR (Non-Af Amer) 99.1 BUN/Creatinine Ratio 35.5 H (10-20) Glucose 73 (70-99) mg/dl Calcium 8.4 L (8.5-10.1) mg/dl Total Bilirubin 0.9 (0.2-1) mg/dl Direct Bilirubin 0.2 (0-0.2) mg/dl AST 22 (15-37) U/L ALT 29 (12-78) U/L Alkaline Phosphatase 48 (45-117) U/L Troponin I < 0.015 (0-0.045) ng/ml Total Protein 6.0 L (6.4-8.2) gm/dl Albumin 3.3 L (3.4-5.0) gm/dl Lipase 140 (73-393) U/L Urine Color Urine Appearance (Clear) Urine pH (4.5-7.5) Ur Specific [place] (1.000-1.030) Urine Protein (Negative) Urine Glucose (UA) (Negative) Urine Ketones (Negative) Urine Blood (Negative) Urine Nitrite (Negative) Urine Bilirubin (Negative) Urine Urobilinogen (Negative) Ur Leukocyte Esterase (Negative) Blood Type B Negative Antibody Screen NEGATIVE 12/25/18 Range/Units 22:27 WBC (4.8-10.8) K/uL RBC (4.7-6.1) M/uL Hgb (14.0-18.0) g/dL Hct (42-52) % MCV (80-100) fL MCH (25-34) pg MCHC (32-36) g/dL RDW Std Deviation (36.4-46.3) fL RDW Coeff of Denise (11.5-14.5) % Plt Count (130-400) K/uL MPV (7.4-10.4) fL Immature Gran % (Auto) % Neut % (Auto) % Lymph % (Auto) % [place] % (Auto) % Eos % (Auto) % Baso % (Auto) % Reticulocyte % (Auto) (0.5-2.0) % Immature Gran # (Auto) (0.00-0.02) K/uL Neut # (Auto) (1.4-6.5) K/uL Lymph # (Auto) (1.2-3.4) K/uL [place] # (Auto) (0.11-0.59) K/uL Eos # (Auto) (0-0.5) K/uL Baso # (Auto) (0-0.2) K/uL Reticulocyte # (0.02-0.10) 10^6/uL Sodium (136-145) mmol/L Potassium (3.5-5.1) mmol/L Chloride (98-107) mmol/L Carbon Dioxide (21-32) mmol/L Anion Gap (3-11) BUN (7-18) mg/dl Creatinine (0.6-1.4) mg/dl Est Cr Clr Drug Dosing ml/min Est GFR ( Amer) Est GFR (Non-Af Amer) BUN/Creatinine Ratio (10-20) Glucose (70-99) mg/dl Calcium (8.5-10.1) mg/dl Total Bilirubin (0.2-1) mg/dl Direct Bilirubin (0-0.2) mg/dl AST (15-37) U/L ALT (12-78) U/L Alkaline Phosphatase (45-117) U/L Troponin I (0-0.045) ng/ml Total Protein (6.4-8.2) gm/dl Albumin (3.4-5.0) gm/dl Lipase (73-393) U/L Urine Color Yellow Urine Appearance Clear (Clear) Urine pH 5.5 (4.5-7.5) Ur Specific [place] 1.025 (1.000-1.030) Urine Protein Negative (Negative) Urine Glucose (UA) Negative (Negative) Urine Ketones Negative (Negative) Urine Blood Negative (Negative) Urine Nitrite Negative (Negative) Urine Bilirubin Negative (Negative) Urine Urobilinogen Negative (Negative) Ur Leukocyte Esterase Negative (Negative) Blood Type Antibody Screen Imaging Data Radiologist's Impression: Radiology results as stated below per my review and the radiologist's interpretation: XR abdomen 2V w PA chest CLINICAL HISTORY: cp/epgiastric pain COMPARISON STUDY: No previous studies for comparison. FINDINGS: The soft tissues, psoas shadows, renal outlines and intestinal gas pattern appear normal. There is no evidence for bowel obstruction. There is no e vidence for free intraperitoneal air. No abnormal abdominal calcifications are seen. A frontal view of the chest was performed and is unremarkable. IMPRESSION: Normal study. The above report was generated using voice recognition software. It may contain grammatical, syntax or spelling errors. Electronically signed by: Rigoberto Rey M.D. 12/25/2018 10:32 PM CTA CHEST: No pulmonary embolus. No effusion or consolidation. Radiologist: Aiyana Mendez M.D. CTA ABDOMEN: No vascular occlusion. No evidence of bowel pneumatosis. No radiodense gallstones or pancreatitis. Appendix not identified. Radiologist: Aiyana Mendez M.D. ECG Data Attestation: I personally reviewed and interpreted this ECG as follows: Indication: other (rectal bleeding) Rate (beats per minute): 129 Rhythm: sinus tachycardia Findings: + other (NM, QRS, and QTC intervals within normal limits ); no ST depression and no ST elevation Blood Pressure Blood Pressure Findings: Normal blood pressure MDM Narrative The patient's vital signs are stable. CTA of the chest is within normal limits. Labs show an approximate 5 point drop in hemoglobin and BUN more than tripled to 37. The patient has active GI bleeding in the ED. The patient will be further evaluated by Dr. [facility] Hospitalist who requests that a CTA of the abdomen be ordered. Impression & Plan GI bleed Discharge Plan Visit Data Chief Complaint: Rectal Bleed Stated Complaint: BLOOD IN STOOL, A LOT ED Provider: Tin Marie Discharge Problem: GI bleed Patient Disposition: Being Evaluated by Hospitalist Discharge Instructions Interventions: ED Discharge Assessment Last Done: 12/26/18 01:14 Forms Stand Alone Forms: My Able Device Prescriptions Prescriptions: No Action albuterol sulfate [Ventolin HFA] 90 mcg/actuation Hfa Aerosol Inhaler 2 puff INHALATION Q6H PRN (Reason: Shortness Of Breath Or Wheezing) RF: 0 Referrals Referrals: [facility] [Primary Care Provider] - Discharge Problem: GI bleed Qualifiers: GI bleed type/associated pathology: unspecified gastrointestinal hemorrhage type Qualified Code(s): K92.2 - Gastrointestinal hemorrhage, unspecified The scribe's documentation has been prepared under my direction and personally reviewed by me in its entirety. I confirm that the note above accurately reflects all work, treatment, procedures, and medical decision making performed by me.
[2018-12-26] MEDS ORDERED: ACETAMINOPHEN 1000 MG/100 ML IV IV PRN (01:43)
[2018-12-26] MEDS ORDERED: ALBUTEROL HFA 8 GM INHALER INH PRN (01:43)
[2018-12-26] MEDS: PANTOprazole 40 MG in DEXTROSE 5% 100 ML IV SCH ×5 (02:10→22:32)
[2018-12-26] MEDS: NSS + 20MEQ KCL 20 MEQ/1,000 ML BAG IV SCH ×3 (02:20→23:44)
[2018-12-26 04:37] LABS: Hematocrit (blood only) 24.9 % (42-52); Hemoglobin 9.2 g/dL (14.0-18.0)
--- NOTE | 2018-12-26 06:54 | CT Scan Report ---
CT angio abdomen pelvis w con CLINICAL HISTORY: 28 years-old Male presenting with rectal bleeding, concern for mesenteric ischemia. TECHNIQUE: Multidetector CT angiography of the abdomen and pelvis was performed after the administrat ion of intravenous contrast. 3-D volumetric and/or maximum intensity projection (MIP) images were sub sequently reconstructed for review. IV contrast: 119 mL of Optiray 320. One or more dose lowering seamus hniques were used consistent with the principles of ALARA (as low as reasonably achievable), includin g automatic exposure control, mA or kV adjustment to individual patient size, and/or use of iterative reconstruction. Stenosis measurements were based on NASCET-like criteria (distal lumen diameter as t he denominator for stenosis measurement). COMPARISON: Noncontrast CT from 08/17/2016. CT DOSE (mGy.cm): The estimated cumulative dose is 539.15 mGycm. 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 Vasculature: Aorta and major branch vessels widely patent. No evidence of a significant stenosis, occlusion, or di ssection. Specifically in the region of the rectum, there is no abnormal vessel or CT evidence of int raluminal extravasation to suggest gastrointestinal hemorrhage. Celiac, superior mesenteric, inferior mesenteric arteries widely patent both at their origins and along the courses. Remaining abdomen and pelvis: Lung bases: Normal heart size. No pericardial or pleural effusion. No focal infiltrate or nodule at t he lung bases. Liver: Normal morphology. No liver lesion allowing for the arterial phase of contrast. Patent hepatic vasculature. Biliary: No intrahepatic or extrahepatic biliary ductal dilatation. Normal gallbladder. Pancreas: Normal. Spleen: Normal. Splenule noted. Adrenal glands: Normal. Kidneys and ureters: Normal. No hydronephrosis. Bladder: Normal. Pelvic organs: Prostate and seminal vesicles normal. Bowel: The rectum is normal appearing. No bowel wall thickening or pneumatosis. Normal enhancement of the small and large bowel. The appendix is normal. Peritoneal cavity: No free fluid or intraperitoneal gas. Lymph nodes: No enlarged lymph nodes in the abdomen or pelvis. Abdominal wall: Normal. Musculoskeletal: Normal. IMPRESSION: No CT evidence of gastritis or hemorrhage. No acute intra-abdominal pathology. No evidence of signifi cant stenosis, occlusion, or dissection of the aorta and major branch vessels. No findings to suggest mesenteric ischemia. Electronically signed by: Maurilio Stevens M.D. 12/26/2018 6:53 AM
[2018-12-26 08:20] LABS: Hematocrit (blood only) 22.5 % (42-52); Hemoglobin 8.3 g/dL (14.0-18.0)
--- NOTE | 2018-12-26 08:21 | CT Scan Report ---
CT angio chest PE protocol CLINICAL HISTORY: 28 years-old Male presenting with atypical chest pain, shortness of breath, clinica l concern for pulmonary embolus. TECHNIQUE: Multidetector CT angiography of the chest was performed after administration of intravenou s contrast. 3-D volumetric and/or maximum intensity projection (MIP) images were subsequently reconst ructed for review. IV contrast: 110 mL of Optiray 320. One or more dose lowering techniques were used consistent with the principles of ALARA (as low as reasonably achievable), including automatic expos ure control, mA or kV adjustment to individual patient size, and/or use of iterative reconstruction. COMPARISON: 10/23/2012. CT DOSE (mGy.cm): The estimated cumulative dose is 384.51 mGy.cm. 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 Pulmonary vasculature: The study is adequate for assessment of the pulmonary vascular tree. No filling defect within the pul monary arteries to suggest embolus. Main pulmonary artery is not enlarged. No flattening of the inter ventricular septum. No intracardiac filling defect. No reflux of contrast into the hepatic veins. Remaining chest: Soft tissues: Normal thyroid and thoracic inlet. Gynecomastia. No axillary, supraclavicular, mediasti nal, or hilar lymphadenopathy. Normal aorta. Normal heart size. No pericardial or pleural effusion. U pper abdomen normal. Lungs and airways: No pneumothorax. Central airways patent. Pulmonary arteries are not significantly enlarged relative to adjacent bronchi. No interlobular septal thickening. No focal infiltrate or nodu le. Musculoskeletal: Normal osseous structures. IMPRESSION: 1. No evidence of pulmonary embolus. No acute intrathoracic pathology. Electronically signed by: Maurilio Stevens M.D. 12/26/2018 8:20 AM
[2018-12-26 13:47] LABS: Hematocrit (blood only) 22.2 % (42-52); Hemoglobin 8.1 g/dL (14.0-18.0)
[2018-12-26] MEDS ORDERED: MIDAZOLAM HCL 1 MG/ML 2ML VIAL ONE (14:36)
[2018-12-26] MEDS ORDERED: fentaNYL citrate 100 MCG/2 ML VIAL ONE (14:36)
--- NOTE | 2018-12-26 14:40 | Anesthesiology Consultation ---
Date of Service December 26, 2018 Acute Blood Loss anemia Sickle Cell anemia Mild asthma Assessment & Plan (1) Encounter for pre-operative examination: Chart Review Chart Review: Acceptable Risk for Surgery and Patient NOT seen in Pre Admission Testing Consults Requested none ASA ASA3 Proposed Anesthesia Anesthesia Type: MAC Risk / Benefits Reviewed With: PT / POA / Parent / Guardian, Accepts Plan and Informed Consent Obtained History Surgery Operation Date: 12/26/18 10:00 Proposed Procedures p Esophagogastroduodenoscopy Dr Nidia Jacob Height/Weight Height: 6 ft Weight: 81 kg Allergies Allergy/AdvReac Type Severity Reaction Status Date / Time No Known Allergies Allergy Verified 12/25/18 22:23 Medications Home Medications Medication Instructions Recorded Confirmed Last Taken albuterol sulfate [Ventolin HFA] 2 puff INHALATION Q6H PRN 12/21/18 12/25/18 Unknown Active Medications Generic Name Dose Route Start Last Admin Trade Name Freq PRN Reason Stop Dose Admin Pantoprazole Sodium 40 mg/ 100 mls @ 20 mls/hr 12/26/18 01:15 12/26/18 12:52 Dextrose IV 01/25/19 01:14 20 mls/hr Q5H LÁZARO Administration Potassium Chloride/Sodium Chloride 20 meq in 1,000 mls @ 100 mls/hr 12/26/18 01:43 12/26/18 12:53 Normal Saline W/20 Meq Kcl IV 01/25/19 01:42 100 mls/hr .Q10H LÁZARO Administration Ioversol 125 ml 12/25/18 23:11 12/25/18 23:11 Optiray 320 125ml IV 12/29/18 23:10 110 ml ONCE PRN Administration Interaction Checking Ioversol 125 ml 12/26/18 01:17 12/26/18 01:18 Optiray 320 125ml IV 12/30/18 01:16 119 ml ONCE PRN Administration Interaction Checking NPO Date Last Intake of Fluids: 12/25/18 Time Last Intake of Fluids: 19:00 Date Last Intake of Solids: 12/25/18 Time Last Intake of Solids: 19:00 Past Medical History Medical History Asthma (Chronic) Sickle cell disease (Chronic) Exercise / Class Metabolic Activity 1 > 8 Run/Swim/Ski/Tennis Past Anesthesia History No Hx of Anesthesia Complications and No Family Hx of Anesthesia Complications History of PONV No Hx of PONV and No Hx of Motion Sickness Social History Smoking Status: Never smoker Hx Alcohol Use: Yes Alcohol type: beer, wine and hard liquor alcohol intake frequency: a few times a month Hx Substance Use: No Physical Exam Vital Signs Last Vital Signs Temp 36.3 C L 12/26/18 14:28 Pulse 78 12/26/18 14:28 Resp 18 12/26/18 14:28 BP 109/63 12/26/18 14:28 Pulse Ox 100 12/26/18 14:28 ENMT Mouth: no dentition abnormality Thyromental Distance: > or= 3.5 Finger Breadths Mallampati Class: II Neck normal visual inspection Respiratory normal respiratory effort Auscultation: lungs clear to auscultation bilaterally Cardiovascular Rate/Rhythm: regular rate and regular rhythm Psychiatric Orientation: alert Testing Laboratory Results 12/26/18 13:38 12/25/18 22:05 Yellow 12/25/18 22:27 Clear (Clear) 12/25/18 22:27 5.5 (4.5-7.5) 12/25/18 22:27 Ur Specific [place] 1.025 (1.000-1.030) 12/25/18 22:27 Negative (Negative) 12/25/18 22:27 Negative (Negative) 12/25/18 22:27 Negative (Negative) 12/25/18 22:27 Negative (Negative) 12/25/18 22:27 Ur Leukocyte Esterase Negative (Negative) 12/25/18 22:27 Blood Type B Negative 12/25/18 21:53 Antibody Screen NEGATIVE 12/25/18 21:53
--- NOTE | 2018-12-26 14:52 | History & Physical Report ---
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 Beliefs That Will Affect Care: None Current Living Situation Comment: Roommate Other Information That Helps Us Care for You: No Feels Safe at Home: Yes Safety Concerns: Feels Safe At This Time Smoking Status: Never smoker Hx Alcohol Use: Yes Alcohol type: beer, wine and hard liquor Hx Substance Use: No Physical Exam Vital Signs (Past 24 Hours): Last Vital Signs Temp 36.3 C L 12/26/18 14:28 Pulse 78 12/26/18 14:28 Resp 18 12/26/18 14:28 BP 109/63 12/26/18 14:28 Pulse Ox 100 12/26/18 14:28 Constitutional: well developed and well nourished Respiratory: normal respiratory effort Cardiovascular: Rate/Rhythm: regular rate and regular rhythm Gastrointestinal (Abdomen): Percussion/Palpation: abdomen soft Code Status & VTE Plan VTE Prophylaxis Plan VTE Prophylaxis will be ordered: Yes
--- NOTE | 2018-12-26 15:14 | GI REPORT ---
Patient Name: Elder Chambers Procedure Date: 12/26/2018 2:58 PM Date of : 1990 Admit Type: Inpatient Age: 28 Gender: Male Attending MD: Aureliano Jacob MD Procedure: Upper GI endoscopy Providers: Aureliano Jacob MD Referring MD: Laz Mahmood Indications: Acute post hemorrhagic anemia Medicines: Fentanyl 100 micrograms IV, Midazolam 2 mg IV, Propofol total dose 50 mg IV, Lidocaine 80 mg IV Complications: No immediate complications. Estimated Blood Loss: Estimated blood loss: none. Procedure: Pre-Anesthesia Assessment: - Prior to the procedure, a History and Physical was performed, and patient medications, allergies and sensitivities were reviewed. The patient's tolerance of previous anesthesia was reviewed. - The risks and benefits of the procedure and the sedation options and risks were discussed with the patient. All questions were answered and informed consent was obtained. After obtaining informed consent, the endoscope was passed under direct vision. Throughout the procedure, the patient's blood pressure, pulse, and oxygen saturations were monitored continuously. The Endoscope was introduced through the mouth, and advanced to the second part of duodenum. The upper GI endoscopy was accomplished without difficulty. The patient tolerated the procedure well. Findings: The Z-line was regular and was found 44 cm from the incisors. The examined esophagus was normal. The entire examined stomach was normal. One non-bleeding cratered duodenal ulcer with no stigmata of bleeding was found in the duodenal bulb. The lesion was 5 mm in largest dimension. Impression: - Z-line regular, 44 cm from the incisors. - Normal esophagus. - Normal stomach. - One non-bleeding duodenal ulcer with no stigmata of bleeding. - No specimens collected. Recommendation: - [facility] patient [facility] for [facility] care. Aureliano Jacob M.D. Aureliano Jacob MD 12/26/2018 3:14:01 PM This report has been signed electronically. Note Initiated On: 12/26/2018 2:58 PM Number of Addenda: 0 I attest to the content of the Intraoperative Record and orders documented therein, exceptions below {[id number]}
[2018-12-26] MEDS ORDERED: LIDOCAINE HCL 2% 2 ML VIAL/AMP(20MG/ML) INFIL ONE (15:19)
[2018-12-26] MEDS ORDERED: PROPOFOL IV EMULSION 10 MG/ML 20 ML VIAL IV ONE (15:19)
--- NOTE | 2018-12-26 15:29 | Consultation Report ---
DATE OF CONSULTATION: 12/26/2018 GI CONSULT NOTE REASON FOR EVALUATION: Acute GI bleeding. HISTORY OF PRESENT ILLNESS: The patient is a 28-year-old admitted today with a 2-day history of several bloody bowel movements. The patient was noted to be anemic and started on IV Protonix. He denies use of aspirin or nonsteroidals. He has been experiencing some associated abdominal pain especially in the epigastric area with some associated nausea. At the time of hospitalization, his hemoglobin was 9.8 with an MCV of 85. GI consultation has been requested. PAST MEDICAL HISTORY: Remarkable for sickle cell disease and asthma. MEDICATIONS: Albuterol. ALLERGIES: None. 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 Former smoker. FAMILY HISTORY: Positive for sickle cell. REVIEW OF SYSTEMS: Negative 12 systems. PHYSICAL EXAMINATION: GENERAL: The patient appears awake, alert, in no acute distress. VITAL SIGNS: Normal. He is afebrile. ABDOMEN: Little tender in the epigastric area. No mass or rebound. IMPRESSION: The patient has gastrointestinal bleeding. I plan on scheduling him for an EGD for further evaluation. In the meantime, he will stay on IV Protonix.
--- NOTE | 2018-12-26 15:35 | Anesthesiology Progress Note ---
Date of Service December 26, 2018 Anesthesia Post Procedure Vital Signs Vital Signs: Temp Pulse Pulse Resp BP BP BP 12/26/18 15:25 82 18 104/60 12/26/18 15:10 36.5 C 99 H 16 104/51 L 12/26/18 14:28 36.3 C L 78 18 109/63 12/26/18 12:06 36.5 C 73 18 115/60 12/26/18 07:29 36.7 C 81 17 120/71 12/26/18 07:27 75 12/26/18 02:00 36.8 C 90 89 112/66 12/26/18 00:31 111 H 18 131/65 12/25/18 23:12 106 H 18 121/72 12/25/18 21:40 36.5 C 125 H 20 114/69 Pulse Ox 12/26/18 15:25 98 12/26/18 15:10 100 12/26/18 14:28 100 12/26/18 12:06 98 12/26/18 07:29 97 12/26/18 07:27 12/26/18 02:00 98 12/26/18 00:31 99 12/25/18 23:12 100 12/25/18 21:40 99 Transfer of Care Handoff Completed per policy Notes Mental Status: alert / awake / arousable Patient Amnestic to Procedure: Yes Nausea / Vomiting: adequately controlled Pain: adequately controlled Airway Patency, RR, SpO2: stable & adequate BP & HR: stable & adequate Hydration State: stable & adequate Anesthetic Complications: no major complications apparent and Pt Satisfied with anesthetic care
[2018-12-26] MEDS: SODIUM CHLORIDE 0.9% 1000ML 1,000 ML IV SCH (16:18)
[2018-12-26 20:36] LABS: Hematocrit (blood only) 20.4 % (42-52); Hemoglobin 7.6 g/dL (14.0-18.0)
[2018-12-27] MEDS: PANTOprazole 40 MG in DEXTROSE 5% 100 ML IV SCH ×5 (03:30→22:04)
[2018-12-27 07:20] LABS: Hematocrit (blood only) 20.1 % (42-52); Hemoglobin 7.1 g/dL (14.0-18.0); Mean Corpuscular Hgb Conc 35.3 g/dL (32-36); Mean Platelet Volume 10.5 fL (7.4-10.4); Platelet Count 163 K/uL (130-400); RDW Coefficient of Variation 13.2 % (11.5-14.5); RDW Standard Deviation 41.8 fL (36.4-46.3); Red Blood Count 2.31 M/uL (4.7-6.1); White Blood Count 6.47 K/uL (4.8-10.8)
[2018-12-27 07:26] LABS: Basophils # (auto) 0.03 K/uL (0-0.2); Basophils % (auto) 0.5 %; Eosinophils # (auto) 0.13 K/uL (0-0.5); Immature Granulocytes # (auto) 0.01 K/uL (0.00-0.02); Immature Granulocytes % (auto) 0.2 %; Lymphocytes % (auto) 32.5 %; Monocytes # (auto) 0.52 K/uL (0.11-0.59); Neutrophils # (auto) 3.68 K/uL (1.4-6.5); Neutrophils % (auto) 56.8 %; RBC Morphology Unremarkable
[2018-12-27] MEDS ORDERED: SODIUM CHLORIDE 0.9% 250 ML IV PRN ×2 (07:29→10:23)
[2018-12-27 07:39] LABS: Calcium 7.9 mg/dl (8.5-10.1); Creatinine Clr Calc Pharmacy 126.9 ml/min; Est GFR (Non-African American) 107.9
[2018-12-27] MEDS: NSS + 20MEQ KCL 20 MEQ/1,000 ML BAG IV SCH ×2 (09:58→19:11)
--- NOTE | 2018-12-27 14:53 | Hospitalist Progress Note ---
Date of Service December 27, 2018 Assessment & Plan (1) Duodenal ulcer: found on EGD on 12/26, no current bleeding follow up H pylori treat with Protonix advance to low fiber diet (2) GI bleed: EGD showed duodenal ulcer, clean, no bleeding will treat with Protonix, will need BID dosing for at least 4 weeks H pylori stool antigen ordered, no stool for two days if positive will need triple therapy no current signs of bleeding, no melena since admission (3) Symptomatic anemia: Hb dropped to 9 and then 8.3 and now 7.1 this morning feels weak and has a headache no light headedness, able to ambulate will transfuse two units for Hb of 7, repeat in the morning (4) GERD (gastroesophageal reflux disease): See above. use Protonix (5) Abdominal pain: due to ulcer, pain has completely resolved (6) Reaction, drug, adverse: The patient has been taking Flagyl orally as potential treatment for a trichomonas infection of his significant other. His testing was negative, but he did complete the full course of treatment. He did have some nausea and abdominal discomfort, but his significant other notes that he was having some of the symptoms prior to the Flagyl as well. Unclear in the ulcer was side effect, likely not (7) Asthma: Continue to have Ventolin HFA 2 puffs every 6 hours as needed available Plan: repeat H/H in the morning, likely discharge in the morning Subjective patient feeling well but is tired, has a mild headache sleeping a lot reviewed labs, Hb down to 7.1 will transfuse two units, he agrees updated his mom on the phone H pylori stool Ag ordered, no stool for two days Review of Systems Review of Systems: All systems reviewed & are unremarkable except as noted in HPI & below Constitutional: + fatigue and + weakness Gastrointestinal: no abdominal pain, no nausea, no vomiting, no constipation, no diarrhea/loose stools, no blood in stools and no melena Neurologic: + headache(s) Physical Exam Constitutional: WD/WN, vitals as above Eyes: PERRL, conjunctivae normal, anicteric sclerae ENMT: external ear and nose normal, oropharynx normal Neck: trachea midline, no thyromegaly Respiratory: normal respiratory effort, lungs clear to auscultation Cardiovascular: RRR, no murmur, no edema Gastrointestinal (Abdomen): normal bowel sounds, soft, nontender, no hepatosplenomegaly Musculoskeletal: no cyanosis or clubbing, extremities motor strength 5/5 Skin: no rashes, warm and dry Neurologic: patellar DTR's 2+ bilat, sensation intact and PERRL, EOMI, accommodation nl, no face palsy, no dysarthria Psychiatric: A+Ox3, euthymic affect Lymphatic: no cervical or axillary lymphadenopathy Results & Data Vital Signs (Past 12 Hours) Vital Signs Temp Pulse Pulse Resp BP BP Pulse Ox 12/27/18 14:46 37.1 C 92 H 16 109/69 12/27/18 14:20 36.9 C 89 18 107/67 99 12/27/18 13:51 37.1 C 76 16 100/60 100 12/27/18 13:50 37.1 C 76 16 100/60 100 12/27/18 13:35 37.1 C 84 16 97/48 L 12/27/18 13:12 37.1 C 80 18 104/56 L 100 12/27/18 13:04 37.2 C 82 18 121/70 12/27/18 12:13 37.2 C 82 16 121/74 100 12/27/18 11:45 37 C 82 16 105/67 12/27/18 11:43 36.8 C 82 18 110/63 100 12/27/18 11:30 37 C 64 16 111/64 12/27/18 11:28 37.0 C 80 16 111/64 96 12/27/18 11:09 37.1 C 82 18 103/61 100 12/27/18 08:01 74 12/27/18 07:32 37.0 C 100 H 18 108/62 100 12/27/18 04:00 36.9 C 79 20 96/54 L 99 Laboratory Results Laboratory Results - last 24 hr 12/25/18 12/26/18 12/26/18 21:53 19:45 19:45 WBC RBC Hgb 7.6 L Hct 20.4 L* MCV MCH MCHC RDW Std Deviation RDW Coeff of Denise Plt Count MPV Immature Gran % (Auto) Neut % (Auto) Lymph % (Auto) [place] % (Auto) Eos % (Auto) Baso % (Auto) Immature Gran # (Auto) Neut # (Auto) Lymph # (Auto) [place] # (Auto) Eos # (Auto) Baso # (Auto) RBC Morphology Sodium Potassium Chloride Carbon Dioxide Anion Gap BUN Creatinine Est Cr Clr Drug Dosing Est GFR ( Amer) Est GFR (Non-Af Amer) BUN/Creatinine Ratio Glucose Calcium Blood Type B Negative Blood Type Recheck B Negative Antibody Screen NEGATIVE Crossmatch See Detail 12/27/18 12/27/18 06:25 06:25 WBC 6.47 RBC 2.31 L Hgb 7.1 L Hct 20.1 L* MCV 87.0 MCH 30.7 MCHC 35.3 RDW Std Deviation 41.8 RDW Coeff of Denise 13.2 Plt Count 163 MPV 10.5 H Immature Gran % (Auto) 0.2 Neut % (Auto) 56.8 Lymph % (Auto) 32.5 [place] % (Auto) 8.0 Eos % (Auto) 2.0 Baso % (Auto) 0.5 Immature Gran # (Auto) 0.01 Neut # (Auto) 3.68 Lymph # (Auto) 2.10 [place] # (Auto) 0.52 Eos # (Auto) 0.13 Baso # (Auto) 0.03 RBC Morphology Unremarkable Sodium 139 Potassium 4.0 Chloride 109 H Carbon Dioxide 27 Anion Gap 3.0 BUN 13 D Creatinine 0.96 Est Cr Clr Drug Dosing 126.9 Est GFR ( Amer) 125.0 Est GFR (Non-Af Amer) 107.9 BUN/Creatinine Ratio 14.0 Glucose 81 Calcium 7.9 L Blood Type Blood Type Recheck Antibody Screen Crossmatch Medications Administered Current Inpatient Medications Acetaminophen (Ofirmev) 1,000 mg IV Q8H PRN PRN Reason: Pain or Fever Stop: 01/25/19 01:42 Last Admin: 12/26/18 22:10 Dose: 1,000 mg Documented by: Albuterol (Ventolin Hfa) 2 puffs INH Q6H PRN PRN Reason: Shortness Of Breath Or Wheezing Stop: 01/25/19 01:42 Pantoprazole Sodium 40 mg/ (Dextrose) 100 mls @ 20 mls/hr IV Q5H LÁZARO Stop: 01/25/19 01:14 Last Admin: 12/27/18 13:33 Dose: 20 mls/hr Documented by: Potassium Chloride/Sodium Chloride (Normal Saline W/20 Meq Kcl) 20 meq in 1,000 mls @ 100 mls/hr IV .Q10H LÁZARO Stop: 01/25/19 01:42 Last Admin: 12/27/18 09:58 Dose: 100 mls/hr Documented by: Sodium Chloride (Nss 1000ml) 1,000 mls @ 15 mls/hr IV .Q24H LÁZARO Stop: 01/25/19 14:59 Last Admin: 12/26/18 16:18 Dose: Not Given Documented by: Sodium Chloride (Nss) 250 mls @ 15 mls/hr IV .[id number] PRN PRN Reason: For Transfusion Stop: 01/26/19 07:28 Sodium Chloride (Nss) 250 mls @ 15 mls/hr IV .[id number] PRN PRN Reason: For Transfusion Stop: 01/26/19 10:22 Ioversol (Optiray 320 125ml) 125 ml IV ONCE PRN PRN Reason: Interaction Checking Stop: 12/29/18 23:10 Last Admin: 12/25/18 23:11 Dose: 110 ml Documented by: Ioversol (Optiray 320 125ml) 125 ml IV ONCE PRN PRN Reason: Interaction Checking Stop: 12/30/18 01:16 Last Admin: 12/26/18 01:18 Dose: 119 ml Documented by: (1) GI bleed GI bleed type/associated pathology: unspecified gastrointestinal hemorrhage type Qualified Code(s): K92.2 - Gastrointestinal hemorrhage, unspecified (2) Reaction, drug, adverse Encounter type: initial encounter Qualified Code(s): T50.905A - Adverse effect of unspecified drugs, medicaments and biological substances, initial encounter (3) GERD (gastroesophageal reflux disease) Esophagitis presence: esophagitis presence not specified Qualified Code(s): K21.9 - Gastro-esophageal reflux disease without esophagitis (4) Abdominal pain Abdominal location: epigastric Qualified Code(s): R10.13 - Epigastric pain
[2018-12-27] MEDS: SODIUM CHLORIDE 0.9% 1000ML 1,000 ML IV SCH (17:15)
[2018-12-27] MEDS ORDERED: MAGNESIUM CITRATE 296 ML/BTL PO STA (17:32)
--- NOTE | 2018-12-27 17:36 | Gastroenterology Progress Note ---
Date of Service December 27, 2018 Assessment & Plan (1) GI bleed: no further bms suggests bleeding has stopped. Will purge gut with mag citrate to aid in evaluation--stool should clear up if no further bleeding. [place] at this point thought source per my discussion with DR Nidia STONER---PPI, Stool for H.pylori Ag pending anemia--tranfused and check in am. Subjective cc f/u GI bleeding HPI No stools since EGD. Hgb did drop to 7.1 and he was transfused 2 units PRBCs Review of Systems Respiratory: no dyspnea Cardiovascular: no chest pain Physical Exam Constitutional: WD/WN, vitals as above Respiratory: normal respiratory effort, lungs clear to auscultation Cardiovascular: RRR, no murmur, no edema Gastrointestinal (Abdomen): pos bs, soft, no guarding nor rebound Results & Data Vital Signs (Past 12 Hours) Vital Signs Temp Pulse Pulse Resp BP BP Pulse Ox 12/27/18 16:58 72 12/27/18 14:46 37.1 C 92 H 16 109/69 12/27/18 14:20 36.9 C 89 18 107/67 99 12/27/18 13:51 37.1 C 76 16 100/60 100 12/27/18 13:50 37.1 C 76 16 100/60 100 12/27/18 13:35 37.1 C 84 16 97/48 L 12/27/18 13:12 37.1 C 80 18 104/56 L 100 12/27/18 13:04 37.2 C 82 18 121/70 12/27/18 12:13 37.2 C 82 16 121/74 100 12/27/18 11:45 37 C 82 16 105/67 12/27/18 11:43 36.8 C 82 18 110/63 100 12/27/18 11:30 37 C 64 16 111/64 12/27/18 11:28 37.0 C 80 16 111/64 96 12/27/18 11:09 37.1 C 82 18 103/61 100 12/27/18 08:01 74 12/27/18 07:32 37.0 C 100 H 18 108/62 100 (1) GI bleed GI bleed type/associated pathology: unspecified gastrointestinal hemorrhage type Qualified Code(s): K92.2 - Gastrointestinal hemorrhage, unspecified
[2018-12-28] MEDS: PANTOprazole 40 MG in DEXTROSE 5% 100 ML IV SCH ×3 (02:44→11:54)
[2018-12-28] MEDS: NSS + 20MEQ KCL 20 MEQ/1,000 ML BAG IV SCH ×2 (02:44→11:54)
[2018-12-28 02:48] LABS: Cdiff Antigen Positive
[2018-12-28 02:49] LABS: Cdiff Toxin A+B Positive Cdiff Toxin (Negative)
[2018-12-28 06:15] LABS: Hemoglobin 8.8 g/dL (14.0-18.0)
[2018-12-28] MEDS ORDERED: POLYETHYLENE (MIRALAX) 17 GM PACK PO STA (07:37)
[2018-12-28] MEDS ORDERED: FIDAXOMICIN 200 MG TAB PO ONE (07:56)
[2018-12-28] MEDS ORDERED: FIDAXOMICIN 200 MG TAB PO SCH (09:00)
[2018-12-28 10:09] LABS: Basophils # (auto) 0.04 K/uL (0-0.2); Basophils % (auto) 0.7 %; Eosinophils # (auto) 0.14 K/uL (0-0.5); Eosinophils % (auto) 2.4 %; Hematocrit (blood only) 25.5 % (42-52); Immature Granulocytes # (auto) 0.02 K/uL (0.00-0.02); Immature Granulocytes % (auto) 0.3 %; Lymphocytes % (auto) 34.1 %; Mean Corpuscular Hgb Conc 35.3 g/dL (32-36); Mean Corpuscular Volume 86.1 fL (80-100); Monocytes # (auto) 0.61 K/uL (0.11-0.59); Monocytes % (auto) 10.4 %; Neutrophils # (auto) 3.05 K/uL (1.4-6.5); Neutrophils % (auto) 52.1 %; Platelet Count 176 K/uL (130-400); RDW Coefficient of Variation 13.5 % (11.5-14.5); Red Blood Count 2.96 M/uL (4.7-6.1); White Blood Count 5.86 K/uL (4.8-10.8)
[2018-12-28] MEDS ORDERED: CHOLESTYRAMINE LIGHT 4 GM PKT PO ONE (10:45)
[2018-12-28 10:51] LABS: Blood Urea Nitrogen 8 mg/dl (7-18); Carbon Dioxide 30 mmol/L (21-32); Chloride 110 mmol/L (98-107); Creatinine Clr Calc Pharmacy 124.3 ml/min; Est GFR (Non-African American) 105.2; Glucose 82 mg/dl (70-99); Sodium 141 mmol/L (136-145); Troponin I < 0.015 ng/ml (0-0.045)
[2018-12-28] MEDS ORDERED: VANCOMYCIN HCL 125 MG/2.5ML SOLN PO SCH (12:00)
[2018-12-28] MEDS ORDERED: RASPBERRY SYRUP 5 ML UDP PO SCH (12:00)
[2018-12-28 15:10] LABS: Hematocrit (blood only) 25.8 % (42-52); Hemoglobin 9.2 g/dL (14.0-18.0)
--- NOTE | 2018-12-28 15:21 | Progress Note ---
DATE: 12/28/2018 SUBJECTIVE: The patient is having no abdominal pain. He is passing some old blood this morning. OBJECTIVE: His vital signs are normal. He is afebrile. His hemoglobin has remained stable at 9.0 after 2 units of red blood cells. His stool recently came back positive for C. diff and he has been started on Dificid 200 mg twice a day which he should take for 10 days. Abdomen is nontender on exam. IMPRESSION: The patient's duodenal ulcer appears to have stopped bleeding. I would recommend treatment with proton pump inhibitor for 2 months and a bland diet. His stool for H. pylori is pending at this time. If it does return positive, that will need to be treated. We can follow him as an outpatient if needed. He does plan to follow up with [facility]. I suspect if his followup blood count later today is in the same range, he should be able to go home later today.
[2018-12-28] MEDS ORDERED: CHOLESTYRAMINE LIGHT 4 GM PKT PO SCH (22:00)
--- NOTE | 2018-12-28 22:16 | Discharge Summary ---
Date of Service December 28, 2018 Admission HPI Per Admitting Provider Chief Complaint: The patient presents to the emergency department with complaint of 2 days of blood in stool characterized by dark clumps, with surrounding bright red blood. He has had 3 of these blood bowel movements today, including one in the emergency department. 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 He has not had any issues like this in the past. He denies any regular use of NSAIDs. He was recently on metronidazole for empiric treatment for possible trichomonas infection, that his significant other had, but his testing was negative. He was seen in the emergency department on 12/21/2018 due to chest discomfort and epigastric discomfort along with nausea, that at that time was thought attributable to some mild GERD. He began to have the bleeding as noted 2 days ago, with most significant bleeding in the beginning initially yesterday, and extending into 3 bowel movements today. He denies any questionable food intakes, or any sick exposures. There is no family history of GI bleeding. Principal Diagnosis Duodenal ulcer Discharge Exam Constitutional WD/WN, vitals as above Eyes PERRL, conjunctivae normal, anicteric sclerae ENMT external ear and nose normal, oropharynx normal Neck trachea midline, no thyromegaly Respiratory normal respiratory effort, lungs clear to auscultation Cardiovascular RRR, no murmur, no edema Gastrointestinal (Abdomen) normal bowel sounds, soft, nontender, no hepatosplenomegaly Musculoskeletal no cyanosis or clubbing, extremities motor strength 5/5 Skin no rashes, warm and dry Neurologic patellar DTR's 2+ bilat, sensation intact and PERRL, EOMI, accommodation nl, no face palsy, no dysarthria Psychiatric A+Ox3, euthymic affect Lymphatic no cervical or axillary lymphadenopathy Discharge Data Allergies Allergy/AdvReac Type Severity Reaction Status Date / Time No Known Allergies Allergy Verified 12/25/18 22:23 Consultations 12/25/18 23:35 ED Decision to Admit Stat 12/26/18 01:43 Consult Case Management - Discharge Planning Routine Consult Gastroenterology Routine Procedures Performed Operation Date: 12/26/18 10:00 Actual Procedures p Esophagogastroduodenoscopy - Aureliano Jacob Ordered Studies 12/25/18 21:54 CT angio chest PE protocol Urgent 12/25/18 23:58 CT angio abdomen pelvis w con Urgent Hospital Course (1) Duodenal ulcer: found on EGD on 12/26, no current bleeding follow up H pylori found to be positive for stool antigen call patient, will prescribe Amoxicillin and Clarithromycin x 14 days with the Protonix treat with Protonix tolerating diet (2) GI bleed: EGD showed duodenal ulcer, clean, no bleeding will treat with Protonix, will need BID dosing for at least 4 weeks H pylori stool antigen ordered -- positive result found after the patient was discharged had some bleeding associated with the C diff colitis (3) Symptomatic anemia: Hb dropped to 9 and then 8.3 and then 7.1 morning of 12/27 felt weak and had a headache transfused two units of PRBC, tolerated well Hb was 9.2 on discharge, no symptoms of anemia (4) GERD (gastroesophageal reflux disease): See above. use Protonix (5) Abdominal pain: due to ulcer, pain has completely resolved (6) Reaction, drug, adverse: The patient has been taking Flagyl orally as potential treatment for a trichomonas infection of his significant other. His testing was negative, but he did complete the full course of treatment. He did have some nausea and abdominal discomfort, but his significant other notes that he was having some of the symptoms prior to the Flagyl as well. Unclear in the ulcer was side effect, likely not (7) Asthma: Continue to have Ventolin HFA 2 puffs every 6 hours as needed available Plan: repeat H/H in the morning, likely discharge in the morning (8) C. difficile colitis: discovered day of discharge not moving stools a lot positive for both the antigen and the toxin will treat with Vancomycin x 14 days, Questran added for symptom relief (9) Ectopic atrial rhythm: noted incidentally on monitor echo ordered, low normal EF at 55%, some LVH no symptoms, normal heart rates throughout Total Time Total Time Spent Total Time Spent (In Minutes): 45 minutes Total Time Includes: Examination of the Patient, Discharge Planning, Medication Reconciliation, Communication With Other Providers (Dr. Ferguson) and Other (discussed with patient's mother over the phone) Discharge Plan Discharge Items Patient Disposition: Home - Self-Care Reason For Visit: ACUTE GI BLEED Discharge Diagnosis: Duodenal ulcer C difficile colitis Condition: Good Discharge Goals: Improve disease control, Improve function and Improve nutritional status Activity: Resume your previous activity Non-emergency contact: Primary Care Provider and Rack Maker Call non-emergency contact if: you have any medication questions, your symptoms worsen and you have a fever Follow-up/Referrals: [facility] [Primary Care Provider] - 12/31/18 2:40 pm (Please, follow up at [facility] with Dr. Brad Walden on MondayDecember 31 at 2:40 pm. *If you need to change / cancel this appointment, call the office at [phone].) Diet: Regular Addtl Provider Instructions: Medications: - VANCOMYCIN: take 125mg capsule four times a day for 14 days - QUESTRAN: take twice a day to help solidify stools, can stop once stools solid - PROTONIX: take twice a day for a month, can back down to once daily after that Duodenal ulcer, GI bleed, acute blood loss anemia EGD showed non bleeding duodenal ulcer, stomach was normal required 2 units of blood when Hb was 7.1, up to 9.2 this afternoon treat with Protonix follow up with [facility] in two weeks for both the ulcer and the C diff C diff colitis will treat with Vancomycin 125mg four times a day likely caused by the Flagyl you took for the possible Trichomonas infection use the Questran to help limit symptoms you may see some light bleeding but that will resolve again, follow up with [facility] on 12/31 ask them to refer you to Dr. Jacob in the office with [facility] to be seen in one-two weeks Prescriptions: New Cholestyramine Light 4 gram Powder In Packet 4 g PO BID@1000,2200 10 Days Qty: 60 RF: 0 vancomycin [Vancocin] 125 mg capsule 125 mg PO QID 14 Days Qty: 56 RF: 0 pantoprazole [Protonix] 40 mg tablet,delayed release (DR/EC) 40 mg PO BID 28 Days Qty: 56 RF: 1 Continued albuterol sulfate [Ventolin HFA] 90 mcg/actuation Hfa Aerosol Inhaler 2 puff INHALATION Q6H PRN (Reason: Shortness Of Breath Or Wheezing) RF: 0 Stand-Alone Forms: [facility] Discharge Orders: Discharge Order (Routine); Ordered 12/28/18 Ordered By: Laz Mahmood Admission Data Admit Date/Time: 12/26/18 00:41 Attending Provider: Laz Mahmood Admit Provider: Geovanny Stahl Primary Care Provider: [facility] Other Providers: Aureliano Jacob Service: Telemetry Medical Other Interventions: Discharge Summary Assessment (RN) Last Done: 12/28/18 11:30 DC Date/Time DO NOT enter until pt leaves facility: 12/28/18 17:24
== END 2018-12-28 17:24 | disposition home or self-care (01) | DRG 378 ==
LOC: ED 21:37 → SUATTDRO 12-26 00:41 → 2N 12-26 00:41
DX: K26.4 Chronic or unspecified duodenal ulcer with hemorrhage; J45.909 Unspecified asthma, uncomplicated; D64.9 Anemia, unspecified; A04.71 Enterocolitis due to Clostridium difficile, recurrent; K21.9 Gastro-esophageal reflux disease without esophagitis